=== PATIENT | female | born 1930 | race Caucasian/White ===

== ENCOUNTER 2016-08-29 15:44 | Inpatient (IN) | payer BC, OTHER ==
[~2016-08-29] VITALS: Ht 162.6 cm; Wt 71.4 kg
[~2016-08-29 15:44] MED LIST: CENTRUM SIVER PO; CILO50TA9 PO; CITRACAL PO; CRDCD240 PO; FENO200C6 PO
[2016-08-29] MEDS ORDERED: SODIUM CHLORIDE 0.9% 1000ML 1,000 ML IV STA ×2 (15:59→17:11)
[2016-08-29] MEDS ORDERED: DILTIAZEM BOLUS / DRIP IV STA (15:59)
--- NOTE | 2016-08-29 16:12 | EMERGENCY ROOM VISIT NOTE ---
History Report prepared by Nadira: Mario Alcantar Under the Supervision of: Dr. Santino Lara D.O. First contact with patient: 15:51 Chief Complaint: CARDIAC ASSESSMENT Stated Complaint: CHEST DISCOMFORT Nursing Triage Summary: triage note:pt reports "we finished eating and i started to have tightness in my chest." History of Present Illness The patient is an 86 year old female who presents to the Emergency Room with persistent palpitations that started prior to arrival. The patient stood up from the dinner table earlier today prior to walking to her car when she felt discomfort with palpitations in her chest. She notes that she can feel her heart racing. The patient was feeling fine when she went to bed last night. Today she was feeling tired and weak while doing work around the house but has otherwise felt fine. The patient denies any recent shortness of breath, leg pain or swelling. Per , she has been complaining of chest discomfort. The patient is s/p angioplasty in 2009. She has a history of thyroid disease. She follows up with Dr. Balderas (Family Medicine). She is allergic to Amlodipine and states that her caused her to have a skin breakout. The patient lives with her . Source of History: patient, spouse/significant other Onset: prior to arrival Position: chest Quality: other (palpitations) Timing: other (persistent) Associated Symptoms: No SOB Review of Systems See HPI for pertinent positives & negatives. A total of 10 systems reviewed and were otherwise negative. Past Medical & Surgical Medical Problems: (1) New onset a-fib (2) Thyroid disease Surgical Problems: (1) S/P angioplasty Family History No pertinent family history Social History Smoking Status: Never Smoker Marital Status: Housing Status: lives with family Occupation Status: retired Current/Historical Medications Scheduled Aspirin (Aspirin Ec), 81 MG PO QAM Atorvastatin (Lipitor), 40 MG PO HS Clopidogrel (Plavix), 75 MG PO QAM Famotidine (Pepcid), 20 MG PO QAM Isosorbide Mononitrate Ext Rel (Imdur Ext Rel), 120 MG PO BID Methimazole (Tapazole), 2.5 MG PO QAM Metoprolol Tartrate (Lopressor) (Lopressor), 100 MG PO BID Multiple Minerals W/ Vitamins (Citracal Plus), 1 TAB PO QAM Multiple Vitamins W/ Minerals (Centrum), 1 TAB PO QAM Scheduled PRN Oxycodone/Acetaminophen 5MG/325MG (Percocet 5MG/325MG), 1-2 TABLETS PO Q4H PRN for Pain Allergies Coded Allergies: Amlodipine (Unverified Allergy, Unknown, UNKNOWN, 08/29/16) Morphine (Verified Allergy, Unknown, 04/18/09) Moxifloxacin (Unverified Allergy, Unknown, UNKNOWN, 08/29/16) Quinolones (Verified Allergy, Unknown, 04/18/09) Physical Exam Vital Signs Date Time Temp Pulse Resp B/P (MAP) Pulse Ox O2 Delivery O2 Flow Rate FiO2 08/29/16 17:48 96 Room Air 08/29/16 17:42 140 08/29/16 17:16 116/69 08/29/16 17:14 137 20 96 08/29/16 17:11 105/69 08/29/16 17:06 104/85 08/29/16 17:02 136 26 126/63 08/29/16 17:01 126/63 08/29/16 16:59 128 20 126/75 95 08/29/16 16:56 96/83 08/29/16 16:51 114/88 08/29/16 16:47 149 114/88 08/29/16 16:47 139 122/66 08/29/16 16:46 122/66 08/29/16 16:44 139 18 96 08/29/16 16:42 132 22 118/92 96 Room Air 08/29/16 16:42 118/92 08/29/16 16:37 151 22 127/101 95 08/29/16 16:31 127/101 08/29/16 16:29 146 24 97 08/29/16 16:14 139 17 97 08/29/16 16:04 163 08/29/16 15:59 192 24 94 08/29/16 15:48 36.7 154 20 175/95 96 Room Air Physical Exam GENERAL: Patient is awake, alert, very anxious appearing. EYES: The conjunctivae are clear. The pupils are round and reactive. EARS, NOSE, MOUTH AND THROAT: The nose is without any evidence of any deformity. Mucous membranes are moist tongue is midline NECK: The neck is nontender and supple. RESPIRATORY: Normal respiratory effort is noted there is no evidence of wheezing rhonchi or rales CARDIOVASCULAR: Heart sound irregular and tachycardic, no definite murmurs noted to auscultation. GASTROINTESTINAL: The abdomen is soft. Bowel sounds are present in all quadrants. Abdomen is nontender MUSCULOSKELETAL/EXTREMITIES: There is no evidence of gross deformity full range of motion is noted in the hips and shoulders SKIN: There is no obvious evidence of any rash. There are no petechiae, pallor or cyanosis noted. NEUROLOGIC: Patient is awake alert and oriented x3. Medical Decision & Procedures ER Provider Diagnostic Interpretation: X-ray results as stated below per interpretation by me and the radiologist. CHEST ONE VIEW PORTABLE HISTORY: Chest discomfort. COMPARISON: Chest 11/13/2014. FINDINGS: The lungs are clear. Cardiac silhouette is normal in size. No pleural effusions. No pneumothorax. IMPRESSION: No acute process. Electronically signed by: Ranjit George M.D. 08/29/2016 4:31 PM Dictated Date/Time: 08/29/2016 4:29 PM Laboratory Results 08/29/16 16:02 Red Blood Count 4.72, Mean Corpuscular Volume 94.3, Mean Corpuscular Hemoglobin 31.6, Mean Corpuscular Hemoglobin Concent 33.5, Mean Platelet Volume 10.5, Neutrophils (%) (Auto) 68.4, Lymphocytes (%) (Auto) 21.3, Monocytes (%) (Auto) 8.5, Eosinophils (%) (Auto) 1.3, Basophils (%) (Auto) 0.3, Neutrophils # (Auto) 5.93, Lymphocytes # (Auto) 1.85, Monocytes # (Auto) 0.74, Eosinophils # (Auto) 0.11, Basophils # (Auto) 0.03 08/29/16 16:02 Test 08/29/16 16:02 White Blood Count 8.68 K/uL (4.8-10.8) Red Blood Count 4.72 M/uL (4.2-5.4) Hemoglobin 14.9 g/dL (12.0-16.0) Hematocrit 44.5 % (37-47) Mean Corpuscular Volume 94.3 fL (80-100) Mean Corpuscular Hemoglobin 31.6 pg (25-34) Mean Corpuscular Hemoglobin Concent 33.5 g/dl (32-36) Platelet Count 193 K/uL (130-400) Mean Platelet Volume 10.5 fL (7.4-10.4) Neutrophils (%) (Auto) 68.4 % Lymphocytes (%) (Auto) 21.3 % Monocytes (%) (Auto) 8.5 % Eosinophils (%) (Auto) 1.3 % Basophils (%) (Auto) 0.3 % Neutrophils # (Auto) 5.93 K/uL (1.4-6.5) Lymphocytes # (Auto) 1.85 K/uL (1.2-3.4) Monocytes # (Auto) 0.74 K/uL (0.11-0.59) Eosinophils # (Auto) 0.11 K/uL (0-0.5) Basophils # (Auto) 0.03 K/uL (0-0.2) RDW Standard Deviation 43.7 fL (36.4-46.3) RDW Coefficient of Variation 12.7 % (11.5-14.5) Immature Granulocyte % (Auto) 0.2 % Immature Granulocyte # (Auto) 0.02 K/uL (0.00-0.02) Prothrombin Time 10.7 SECONDS (9.0-12.0) Prothromb Time International Ratio 1.0 (0.9-1.1) Activated Partial Thromboplast Time 28.6 SECONDS (21.0-31.0) Partial Thromboplastin Ratio 1.1 Anion Gap 8.0 mmol/L (3-11) Est Creatinine Clear Calc Drug Dose 40.4 ml/min Estimated GFR () 59.9 Estimated GFR (Non- 51.7 BUN/Creatinine Ratio 22.4 (10-20) Calcium Level 8.8 mg/dl (8.5-10.1) Magnesium Level 2.2 mg/dl (1.8-2.4) Total Bilirubin 0.4 mg/dl (0.2-1) Direct Bilirubin 0.1 mg/dl (0-0.2) Aspartate Amino Transf (AST/SGOT) 24 U/L (15-37) Alanine Aminotransferase (ALT/SGPT) 23 U/L (12-78) Alkaline Phosphatase 98 U/L (45-117) Total Creatine Kinase 135 U/L (26-192) Creatine Kinase MB 2.7 ng/ml (0.5-3.6) Creatine Kinase MB Ratio 2.0 (0-3.0) Troponin I < 0.015 ng/ml (0-0.045) Total Protein 7.3 gm/dl (6.4-8.2) Albumin 3.6 gm/dl (3.4-5.0) Lipase 159 U/L (73-393) Thyroid Stimulating Hormone (TSH) 1.190 uIu/ml (0.300-4.500) Free Thyroxine 1.19 ng/dl (0.80-1.60) Laboratory results per my review. Medications Administered Medications (Trade) Dose Ordered Sig/Mckay Route Start Time Stop Time Status Last Admin Dose Admin Sodium Chloride 1,000 ml @ 999 mls/hr Q1H1M STAT IV 08/29/16 15:59 08/29/16 16:59 DC 08/29/16 15:59 999 MLS/HR Diltiazem HCl (Cardizem Bolus / Drip) 1 ea NOW STAT IV 08/29/16 15:59 08/29/16 16:01 DC 08/29/16 15:59 1 EA Sodium Chloride 1,000 ml @ 250 mls/hr Q4H STAT IV 08/29/16 17:11 08/29/16 21:10 08/29/16 17:11 250 MLS/HR Metoprolol Tartrate (Lopressor Iv) 5 mg STK-MED ONCE .ROUTE 08/29/16 17:42 08/29/16 17:43 DC 08/29/16 17:42 5 MG ECG Indication: palpitations Rate (beats per minute): 156 Rhythm: atrial fibrillation (with RVR) Findings: ST depression (inferior and lateral, likely rate-related ischemia), other (RVR) Comparison ECG Date: no prior available ED Course 1555: The patient was evaluated in room A2. A complete history and physical examination were performed. 1559: Diltiazem 1 ea IV, NSS 1000 ml @ 999 mls/hr. 1615: Diltiazem HCl bolus / drip 125 mg / dextrose 125 ml @ 0 mls/hr. 1710: Discussed the case with Dr. Bell, [facility] Hospitalist. The patient will be evaluated. 1711: NSS 1000 ml @ 250 mls/hr. 1830: Reassessed the patient. She was doing well. Medical Decision Prior records/ancillary studies reviewed. Triage Nursing notes reviewed. Additional history obtained from . The patient's history was concerning for palpitations. Differential diagnosis: Etiologies such as premature contractions, electrolyte abnormality, cardiac dysrhythmia, thyroid dysfunction, pulmonary embolism, infection, gastrointestinal, as well as others were entertained. Blood pressure screening: Patient was found to have normal blood pressure on screening and does not require follow-up. Medication Reconciliation: I attest that I have personally reviewed the patient' s current medications list. The patient is an 86-year-old female who presented to the emergency department for an evaluation of palpitations and weakness. The patient was found to be in rapid atrial fibrillation. She doesn't a history of coronary artery disease but according to her and her family members she has never had a history of atrial fibrillation in the past. I discussed the patient's laboratory and radiographic studies with her. She was treated with IV fluids and IV Cardizem in the emergency department. Her rate was somewhat improved but she continued to have low blood pressure after the initiation of the IV Cardizem. I discussed her case with the on-call [facility] hospitalist group. They've agreed to evaluate the patient in emergency apartment for further management and disposition. The patient was further treated with IV fluids and her blood pressure improved but her heart rate was still elevated. I will defer anticoagulation to the admitting team at this time. Likely the patient will need a formal evaluation to determine if she requires other rate treatment as well as anticoagulation. Consults Time Called: 1700 Consulting Physician: Dr. Bell, [facility]. Returned Call: 1710 The patient will be evaluated. Impression Primary Impression: Atrial fibrillation with rapid ventricular response Additional Impressions: Weakness Palpitations Abnormal EKG Critical Care I have personally spent greater than 60 minutes of critical care time in the direct management of this patient. This includes bedside care, interpretation of diagnostic studies, and testing, discussion with consultants, patient, and family members, and other required patient management activities. This 60 minutes is in excess of all separately billable procedures. Scribe Attestation The scribe's documentation has been prepared under my direction and personally reviewed by me in its entirety. I confirm that the note above accurately reflects all work, treatment, procedures, and medical decision making performed by me. Departure Information Dispostion Being Evaluated By Hospitalist Moses Patricka M., DO (PCP) Patient Instructions My [facility] Problem Qualifiers
[2016-08-29 16:13] LABS: BASO % 0.3 %; BASO ABS # 0.03 K/uL (0-0.2); COMPLETE YES; EOS % 1.3 %; HEMATOCRIT 44.5 % (37-47); IG% 0.2 %; LYMPH % 21.3 %; LYMPH ABS # 1.85 K/uL (1.2-3.4); MEAN CELL VOLUME 94.3 fL (80-100); MEAN CORPUSCULAR HEMOGLOBIN 31.6 pg (25-34); MEAN CORPUSCULAR HGB CONC 33.5 g/dl (32-36); MEAN PLATELET VOLUME 10.5 fL (7.4-10.4); MONO % 8.5 %; NEUT % 68.4 %; PLATELET COUNT 193 K/uL (130-400); RED BLOOD COUNT 4.72 M/uL (4.2-5.4); WHITE BLOOD COUNT 8.68 K/uL (4.8-10.8)
[2016-08-29] MEDS ORDERED: DILTIAZEM HCL INJ 125 MG in DEXTROSE 5% 100ML IV PRN (16:15)
[2016-08-29] MEDS ORDERED: FAMO20TA11 PO (16:22)
[2016-08-29] MEDS ORDERED: MULT-663 PO (16:22)
[2016-08-29] MEDS ORDERED: ASPI81TA28 PO (16:22)
[2016-08-29] MEDS ORDERED: METO100T14 PO (16:22)
[2016-08-29] MEDS ORDERED: METH5TAB5 PO (16:22)
[2016-08-29] MEDS ORDERED: MULTTAB5 PO (16:22)
[2016-08-29] MEDS ORDERED: ISOS120T5 PO (16:22)
[2016-08-29] MEDS ORDERED: ATOR-24 PO (16:22)
[2016-08-29] MEDS ORDERED: OXYC-57 PO (16:22)
[2016-08-29] MEDS ORDERED: CLOP1TAB15 PO (16:22)
[2016-08-29 16:23] LABS: PARTIAL THROMBOPLASTIN RATIO 1.1; PROTHROMBIN TIME (PATIENT) 10.7 SECONDS (9.0-12.0)
[2016-08-29 16:31] LABS: ALT/SGPT 23 U/L (12-78); AST/SGOT 24 U/L (15-37); BLOOD UREA NITROGEN 22 mg/dl (7-18); BUN/CREATININE RATIO 22.4 (10-20); CALCIUM 8.8 mg/dl (8.5-10.1); CARBON DIOXIDE 29 mmol/L (21-32); CHLORIDE 107 mmol/L (98-107); GLUCOSE 150 mg/dl (70-99); MAGNESIUM 2.2 mg/dl (1.8-2.4); SODIUM 144 mmol/L (136-145)
--- NOTE | 2016-08-29 16:33 | DIAGNOSTIC IMAGING REPORT ---
CHEST ONE VIEW PORTABLE HISTORY: Chest discomfort. COMPARISON: Chest 11/13/2014. FINDINGS: The lungs are clear. Cardiac silhouette is normal in size. No pleural effusions. No pneumothorax. IMPRESSION: No acute process. Electronically signed by: Ranjit George M.D. 08/29/2016 4:31 PM Dictated Date/Time: 08/29/2016 4:29 PM
[2016-08-29 16:39] LABS: ALKALINE PHOSPHATASE 98 U/L (45-117)
[2016-08-29] MEDS ORDERED: METOPROLOL TARTRATE 1 MG/ML VIAL ONE (17:42)
[2016-08-29 17:48] VITALS: O2SAT 96; Ht 162.6 cm; Wt 71.4 kg
[2016-08-29] MEDS ORDERED: LORAZEPAM 2 MG/ML 1 ML VIAL IV PRN (18:00)
[2016-08-29] MEDS ORDERED: MAGNESIUM HYDROXIDE SUSP 30 ML UDC PO PRN (18:00)
[2016-08-29] MEDS ORDERED: OXYCODONE/ACETAMINOPHEN 5-325 TAB PO PRN (18:00)
[2016-08-29] MEDS ORDERED: DILTIAZEM BOLUS / DRIP IV SCH (18:00)
[2016-08-29] MEDS ORDERED: ACETAMINOPHEN 325 MG TAB PO PRN (18:00)
[2016-08-29] MEDS ORDERED: NITROGLYCERIN 0.4 MG SL PER TAB CHARGE SL PRN (18:00)
[2016-08-29] MEDS ORDERED: HEPARIN SOD (PORCINE) 1000 UNIT/ML 10 ML VIAL ONE (19:00)
[2016-08-29] MEDS ORDERED: HEPARIN 25000 UNIT/500 ML D5W ONE (19:00)
[2016-08-29 19:47] VITALS: BP 162/79; PULSE 82; TEMP 36.6; O2SAT 95
[2016-08-29 20:13] LABS: URINE APPEARANCE CLEAR (CLEAR); URINE BILIRUBIN NEG (NEG); URINE COLOR YELLOW; URINE NITRITE NEG (NEG); URINE SPECIFIC GRAVITY 1.013 (1.000-1.030); UROBILINOGEN NEG (NEG)
[2016-08-29 20:36] LABS: MANUAL MICROSCOPIC REQUIRED? NO; REVIEW REQ? NO
[2016-08-29] MEDS ORDERED: RANITIDINE HCL 150 MG TAB PO SCH (21:00)
[2016-08-29] MEDS ORDERED: METOPROLOL TARTRATE 100 MG TAB PO SCH (21:00)
[2016-08-29 21:35] VITALS: BP 145/82; PULSE 69
[2016-08-29] MEDS: SODIUM CHLORIDE 0.9% 1000ML 1,000 ML IV SCH (21:36)
[2016-08-29] MEDS: ATORVASTATIN 40 MG TAB PO SCH (21:36)
[2016-08-29] MEDS: METOPROLOL TARTRATE 50 MG TAB PO SCH (21:36)
[2016-08-29] MEDS: ISOSORBIDE MONONITRATE 60 MG TABCR PO SCH (22:06)
--- NOTE | 2016-08-29 22:07 | HISTORY & PHYSICAL EXAMINATION ---
DATE OF ADMISSION: 08/29/2016 CHIEF COMPLAINT: Chest tightness. HISTORY OF PRESENT ILLNESS: The patient is an 86-year-old female with past medical history of hyperthyroidism, currently on oral medications, and also has high blood pressure and dyslipidemia. The patient was having a family gathering for Father's Day and they were eating out Together, when she started feeling some chest tightness and discomfort. Family insisted to bring her to the hospital. She denied any chest pain or palpitation, but when she came to the hospital, she was found to have a heart rate of 150. EKG in the ED showed significant ST depression in multiple leads. The patient was started on a Cardizem drip and received IV fluid hydration, with no improvement. The patient reported that she did miss her beta-todd this morning. She was supposed to be on 100 mg metoprolol twice a day, because she ran out. After hearing that, she was given 5 mg of Lopressor IV and she converted to sinus rhythm. The patient will be admitted for further evaluation and management. REVIEW OF SYSTEMS: Denies any headache, double vision, blurry vision. Denies any fevers, chills or weight loss. Denies any chest pain or palpitation. Admits only to chest tightness. Denied any neck stiffness. Denies any nasal stuffiness or runny nose or sore throat. Denies any cough or wheezing, shortness of breath. Denies any abdominal pain, nausea, vomiting. Denies any rash or ulcers. Denies any joint pain or swelling. Denies any focal weakness, tingling, numbness. Denies any dysuria or blood in the urine. Denies any depression. Denies any bruises or lymph node swelling. PAST MEDICAL HISTORY: Thyroid disease, hypertension, dyslipidemia, history of CAD, status post an angioplasty in 2009. She is unsure if she had any stent placed. FAMILY HISTORY: No pertinent family history. SOCIAL HISTORY: Never a smoker, and lives with family. Does not drink alcohol. CURRENT HOME MEDICATIONS: 1. Aspirin. 2. Lipitor 40 mg p.o. daily. 3. Plavix 75 mg p.o. daily. 4. Pepcid 20 mg q.a.m. 5. Imdur 120 mg p.o. b.i.d. 6. Methimazole 2.5 mg p.o. q.a.m. 7. Lopressor 100 mg p.o. b.i.d. 8. Multiple minerals and vitamin. 9. Percocet p.r.n. pain. ALLERGIES: 1. AMLODIPINE, 2. MORPHINE. 3. MOXIFLOXACIN. 4. QUINOLONES. VITAL SIGNS: Temperature 36.7, heart rate ranging from 120 to 190 on admission, currently is down to 85, respiration is 20, blood pressure is 116/69, pulse ox is 96% on room air. PHYSICAL EXAMINATION: GENERAL: Awake, alert, oriented, not in acute distress. HEENT: No jaundice. No pallor. Moist mucous membranes. NECK: Supple. HEART: S1, S2. Severe tachycardia with irregular irregularity, unable to appreciate any murmur. LUNGS: Clear to auscultation bilaterally. Normal chest wall expansion, not using accessory muscles of respiration. ABDOMEN: Soft, nontender, nondistended. NEUROLOGIC: Awake, alert, oriented to time, place, and person. Moves all extremities. Sensation intact. Cranial nerves II-XII appear to be intact. SKIN: No rash or pruritus. MUSCULOSKELETAL: No edema or swelling or cyanosis in lower extremity. A chest x-ray showed no acute process. LABORATORY DATA: White blood cell count 8.6, hemoglobin 14.9, platelets 193, BUN is 22, creatinine is 1. Sodium 144, potassium is 4. ASSESSMENT AND PLAN: 1. Atrial fibrillation with rapid ventricular response with concomitant demand ischemia, most likely secondary to hyperthyroidism and beta-todd withdrawal. Currently, reverted to sinus rhythm after introducing IV Lopressor. We will restart oral beta-blockers stat, but will have her on a lower dose, only 50 mg since her blood pressure is low. Discussed with family and patient, will initiate heparin drip until seen by life skills coordinator volunteer. With that said, she will be on aspirin, Plavix and heparin drip, which has high tendency for bleeding. I will leave it up to life skills coordinator volunteer to decide whether to continue heparin or to discontinue aspirin or Plavix, especially after retrieving her records from her life skills coordinator volunteer in [place], in a.m. to see if she ever had a stent or not. 2. Hypertension. Continue blood pressure medications, including the beta-todd. Hold blood pressure medication, if her blood pressure remains low. 3. Dyslipidemia. Continue Lipitor. 4. Hyperthyroidism. Continue methimazole, check thyroid panel. 5. Continue Pepcid for gastrointestinal prophylaxis and heparin drip will be for deep venous thrombosis prophylaxis.
[2016-08-29 23:05] VITALS: BP 150/67; PULSE 66; TEMP 36.7; O2SAT 95
[2016-08-30] VITALS (12 sets, daily range): BP systolic 111–198; BP diastolic 61–96; PULSE 55–98; TEMP 36.7–37; O2SAT 92–98
[2016-08-30] MEDS: HEPARIN 25,000 UNIT/500ML D5W 500 ML IV PRN (03:13)
[2016-08-30 06:04] LABS: MEAN CELL VOLUME 95.5 fL (80-100); MEAN CORPUSCULAR HEMOGLOBIN 30.4 pg (25-34); MEAN CORPUSCULAR HGB CONC 31.8 g/dl (32-36); MEAN PLATELET VOLUME 10.5 fL (7.4-10.4); PLATELET COUNT 156 K/uL (130-400); RED BLOOD COUNT 3.98 M/uL (4.2-5.4); WHITE BLOOD COUNT 7.65 K/uL (4.8-10.8)
[2016-08-30 06:23] LABS: PARTIAL THROMBOPLASTIN RATIO 2.7
[2016-08-30] MEDS: SODIUM CHLORIDE 0.9% 1000ML 1,000 ML IV SCH (07:44)
[2016-08-30] MEDS: ASPIRIN 81 MG ECTAB PO SCH (07:44)
[2016-08-30] MEDS: METOPROLOL TARTRATE 50 MG TAB PO SCH ×2 (07:45→21:33)
[2016-08-30] MEDS: ISOSORBIDE MONONITRATE 60 MG TABCR PO SCH ×2 (07:45→20:36)
[2016-08-30] MEDS: CEROVITE ADV FORMULA TAB PO SCH (07:46)
[2016-08-30] MEDS: CLOPIDOGREL BISULFATE 75 MG TAB PO SCH (07:46)
[2016-08-30] MEDS: METHIMAZOLE 5 MG TAB PO SCH (07:46)
[2016-08-30] MEDS: FAMOTIDINE 20 MG TAB PO SCH (07:46)
[2016-08-30 10:17] LABS: PARTIAL THROMBOPLASTIN RATIO 2.3
--- NOTE | 2016-08-30 10:50 | CARDIOLOGY CONSULTATION ---
DATE OF CONSULTATION: 08/30/2016 REQUESTING: Nicky Mac MD CIGAR ROLLER: Moo Bonilla D.O, [facility]. REASON FOR CONSULTATION: Atrial fibrillation with a rapid ventricular response. Dear Dr. Aguilar: Thank you for requesting cardiology consultation on Romelia with regards to her episode of atrial fibrillation with a rapid ventricular response at a rate of 156 beats per minute. HISTORY OF PRESENT ILLNESS: As you know, she is a very pleasant 86-year-old female and they live about 2/3 of the year in [place] and a third of the year here in [place] and they just recently returned from [place]. They were out to dinner yesterday afternoon with their children and she describes a fluttering sensation, almost feeling like there was a Adarsh worms fluttering in her chest. She notes that she is never felt anything like that before. She notes occasionally in the past she will have palpitations which are brief and rapidly resolved. She has never had anything like this. She notes she just did not quite feel well and they were passing the hospital and at the request of her children, she came to the Emergency Room where she was found to have an EKG that was consistent with atrial fibrillation with a rapid ventricular response. She had diffuse ST depression consistent with anterior lateral and possible inferior ischemia as well. Of note, she ran out of her beta blockers. She thinks she missed at least a day if not 2 days of metoprolol which she normally takes 100 mg twice a day. She also has a history of hyperthyroidism and likely this combination contributed to her atrial arrhythmias. She does note that they have been moving and she does get short of breath if she walks for long distance or carries something, but she can walk in a grocery store without significant shortness of breath. She notes where they live. There is an elevator and therefore she does not have to climb stairs and she notes she has been more sedentary of late. She denies any chest pain, chest pressure, chest heaviness either yesterday or with activity. She denies any shortness of breath yesterday, PND, orthopnea. She denies any lightheadedness, dizziness, presyncope, syncope, lower extremity edema. She does have easy bruising on aspirin and Plavix. She denies any dark black tarry stools, blood in her stools, fevers, chills, sweats. Her appetite is stable. Her weight is stable. The rest of review of systems is otherwise negative. PAST MEDICAL HISTORY: 1. Coronary artery disease, status post angioplasty and stenting to an unknown vessel in 2009. 2. Echocardiogram in fall of 2015. 3. Hyperthyroidism. 4. Hypertension. 5. Hyperlipidemia. SOCIAL HISTORY: She is . She lives with her . They live between [place] and [place]. She is a lifetime nonsmoker, denies any alcohol. OUTPATIENT MEDICATIONS: Include aspirin, Lipitor 40 mg daily, Plavix 75 mg daily, Pepcid, Imdur 120 mg b.i.d., methimazole, Lopressor 100 mg b.i.d., Percocet, multivitamin. ALLERGIES: AMLODIPINE, MORPHINE, MOXIFLOXACIN, AND QUINOLONES. FAMILY HISTORY: Noncontributory. PHYSICAL EXAMINATION: GENERAL: She is awake, alert, oriented x3. She is no acute distress. She is a well-appearing female who looks her stated age. VITAL SIGNS: Her heart rate is 98; her respirations are 18; blood pressure 195/96, although earlier at 4:00 a.m., her heart rate was 62 and her blood pressure was 165/91. HEENT: 2+ carotid upstrokes. No evidence of carotid bruits. Jugular venous pressure appeared normal. Sclerae is anicteric. Hearing is normal. LUNGS: Clear to auscultation bilaterally. No rales, rhonchi or wheezing. HEART: Regular rate and rhythm. No appreciable murmurs, rubs or gallops. ABDOMEN: Soft, nontender, nondistended, positive bowel sounds. EXTREMITIES: No clubbing, cyanosis or edema. SKIN: She has ecchymosis or bruising on both upper arms. PSYCHIATRIC: Affect appeared appropriate. NEUROLOGIC: She is awake, alert and oriented x3. DIAGNOSTIC STUDIES: Chest x-ray, no active disease. LABORATORY STUDIES: Her PTT is 69.5 today. Her troponin at 1:38 was 1.2200, her first troponin was negative. Sodium 144, potassium 4.0, BUN 22, creatinine 1. Her TSH was 1.19 with a free T4 of 1.19. Her hemoglobin was 12.1 and her platelet count is 156. EKG in normal sinus rhythm, very subtle mild ST changes. IMPRESSION AND PLAN: 1. Atrial fibrillation with rapid ventricular response, likely related to missing at least 2 potentially 4 doses of metoprolol. 2. Coronary artery disease, status post angioplasty and stenting to an unknown vessel in 2009. 3. Hypertension. 4. Hyperlipidemia. 5. Small troponin elevation, potentially demand ischemia. With IV metoprolol, she converted back to sinus rhythm. She denies ever having an episode where she felt like this in the past as if we think she is having recurrent atrial fibrillation with her hyperthyroidism that would put her at high risk for having cardioembolic events. At this point, I would trend her troponin. I would aggressively treat her blood pressure. She is to remain on beta blockers. If her troponin is trending down, I would just continue her current medical regimen and not entertain additional stress testing or cardiac catheterization. If her troponin trends significantly higher, we will need to reevaluate that. In addition, we need to obtain her outside records including her last echocardiogram, stress testing, and cath report from her physician in [place]. I would stop her IV fluids. I would allow her to ambulate. All this was discussed with the patient in detail.
--- NOTE | 2016-08-30 11:15 | Progress Note ---
Subjective Date of Service: Aug 30, 2016. Subjective Pt evaluation today including: conversation w/ patient, conversation w/ family , physical exam, chart review, lab review, review of studies, conversation w/ strategic solutions consultant, review of inpatient medication list Voiding: no voiding problems Sitting up in chair, has no complaint, denied chest pain Nurse reported blood pressure was high and this morning, however heart rate is good and currently is converted in normal sinus Problem List Medical Problems: (1) Abnormal EKG Status: Acute (2) Atrial fibrillation with rapid ventricular response Status: Acute (3) Palpitations Status: Acute (4) Weakness Status: Acute Review of Systems Constitutional: No fever, No chills, No sweats, No weight loss, No weakness, No fatigue, No problem reported Eyes: No worsening of vision, No eye pain, No redness, No discharge, No diplopia ENT: No hearing loss, No unusual epistaxis, No nasal symptoms, No sore throat, No tinnitus, No dental problems, No trouble swallowing Respiratory: No cough, No sputum, No wheezing, No shortness of breath, No dyspnea on exertion, No dyspnea at rest, No hemoptysis Cardiac: No chest pain, No orthopnea, No PND, No edema, No claudication, No palpitations Abdomen: No pain, No nausea, No vomiting, No diarrhea, No constipation Musculoskeletal: No joint pain, No muscle pain, No swelling, No calf pain Female : No dysuria, No urinary frequency, No hematuria, No incontinence, No abnormal vaginal bleeding, No vaginal discharge Neurologic: No memory loss, No paralysis, No weakness, No numbness/tingling, No vertigo, No balance problems Psychiatric: No depression symptoms, No anhedonism, No anxiety, No insomnia, No substance abuse Heme: No abnormal bleeding/bruising, No clotting problems, No swollen lymph nodes, No night sweats Endo: No fatigue, No excessive thirst, No excessive urination Skin: No rash, No itch, No new/changing skin lesions, No color change, No bleeding Objective Vital Signs Date Time Temp Pulse Resp B/P (MAP) Pulse Ox O2 Delivery O2 Flow Rate FiO2 08/30/16 08:30 64 167/77 (107) 08/30/16 07:43 37.0 98 18 195/96 (129) 96 198/94 (128) 08/30/16 04:02 Room Air 6/19/17 03:39 36.7 62 20 165/91 (115) 94 Room Air 19/17 00:00 Room Air 618/17 23:05 36.7 66 20 150/67 (94) 95 Room Air 618/17 21:35 69 145/82 (103) 618/17 20:00 Room Air 618/17 19:47 36.6 82 20 162/79 (106) 95 Room Air 18/17 19:21 71 19 95 618/17 19:19 36.7 81 20 108/66 94 618/17 19:16 72 23 96 618/17 19:11 74 21 96 618/17 19:06 72 23 95 618/17 19:02 113/55 618/17 19:01 73 21 95 618/17 18:56 76 21 96 618/17 18:51 74 22 96 618/17 18:46 85 17 94 618/17 18:41 79 22 96 618/17 18:36 81 20 94 618/17 18:31 83 28 108/66 618/17 18:27 119/62 6/18/17 18:26 80 18 113/79 95 618/17 18:23 113/61 618/17 18:21 82 20 110/62 618/17 18:19 127/63 618/17 18:17 110/56 618/17 18:16 84 22 95 618/17 18:15 112/59 618/17 18:13 114/74 618/17 18:11 88 23 118/68 94 6/18/17 18:09 117/66 618/17 18:08 118/70 6/18/17 18:06 114 28 126/68 94 618/17 18:03 99/87 618/17 18:01 126 27 91 6/18/17 17:59 107/72 6/18/17 17:57 107/86 6/18/17 17:56 132 25 93 6/18/17 17:55 114/72 618/17 17:53 89/74 618/17 17:51 152 24 106/76 94 6/18/17 17:48 96 Room Air 6/18/17 17:46 142 22 95 17 17:42 140 08/29/16 17:41 136 13 118/79 94 08/29/16 17:36 146 22 95 1817 17:33 113/89 1817 17:31 154 34 80 1817 17:29 107/69 1817 17:27 94/62 17 17:26 127 18 96 08/29/16 17:21 143 24 115/71 1817 17:16 116/69 17 17:14 137 20 96 08/29/16 17:11 105/69 08/29/16 17:06 104/85 08/29/16 17:02 136 26 126/63 08/29/16 17:01 126/63 08/29/16 16:59 128 20 126/75 95 08/29/16 16:56 96/83 08/29/16 16:51 114/88 08/29/16 16:47 149 114/88 08/29/16 16:47 139 122/66 17 16:46 122/66 17 16:44 139 18 96 08/29/16 16:42 132 22 118/92 96 Room Air 08/29/16 16:42 118/92 08/29/16 16:37 151 22 127/101 95 17 16:31 127/101 17 16:29 146 24 97 08/29/16 16:14 139 17 97 08/29/16 16:04 163 08/29/16 15:59 192 24 94 08/29/16 15:48 36.7 154 20 175/95 96 Room Air Physical Exam General Appearance: WD/WN, no apparent distress, + pertinent finding Eyes: normal inspection, PERRL, EOMI, sclerae normal ENT: normal ENT inspection, hearing grossly normal, pharynx normal Neck: supple, no adenopathy, thyroid normal, no JVD, no carotid bruits, trachea midline Respiratory/Chest: chest non-tender, normal breath sounds, no respiratory distress, no accessory muscle use, + decreased breath sounds (pleasant) Cardiovascular: regular rate, rhythm, no edema, no gallop, no JVD, no murmur Abdomen: normal bowel sounds, non tender, soft, no organomegaly, no pulsatile mass Extremities: normal range of motion, non-tender, normal inspection, no pedal edema, no calf tenderness, normal capillary refill, pelvis stable Neurologic/Psychiatric: net lead architect II-XII nml as tested, no motor/sensory deficits, alert, normal mood/affect, oriented x 3 Skin: normal color, warm/dry, no rash Lymphatic: no adenopathy Laboratory Results Last 24 Hours Test 08/29/16 16:02 08/29/16 19:40 08/29/16 22:46 08/30/16 01:38 White Blood Count 8.68 K/uL Red Blood Count 4.72 M/uL Hemoglobin 14.9 g/dL Hematocrit 44.5 % Mean Corpuscular Volume 94.3 fL Mean Corpuscular Hemoglobin 31.6 pg Mean Corpuscular Hemoglobin Concent 33.5 g/dl Platelet Count 193 K/uL Mean Platelet Volume 10.5 fL Neutrophils (%) (Auto) 68.4 % Lymphocytes (%) (Auto) 21.3 % Monocytes (%) (Auto) 8.5 % Eosinophils (%) (Auto) 1.3 % Basophils (%) (Auto) 0.3 % Neutrophils # (Auto) 5.93 K/uL Lymphocytes # (Auto) 1.85 K/uL Monocytes # (Auto) 0.74 K/uL Eosinophils # (Auto) 0.11 K/uL Basophils # (Auto) 0.03 K/uL RDW Standard Deviation 43.7 fL RDW Coefficient of Variation 12.7 % Immature Granulocyte % (Auto) 0.2 % Immature Granulocyte # (Auto) 0.02 K/uL Prothrombin Time 10.7 SECONDS Prothromb Time International Ratio 1.0 Activated Partial Thromboplast Time 28.6 SECONDS 78.3 SECONDS Partial Thromboplastin Ratio 1.1 3.0 Sodium Level 144 mmol/L Potassium Level 4.0 mmol/L Chloride Level 107 mmol/L Carbon Dioxide Level 29 mmol/L Anion Gap 8.0 mmol/L Blood Urea Nitrogen 22 mg/dl Creatinine 1.00 mg/dl Est Creatinine Clear Calc Drug Dose 40.4 ml/min Estimated GFR () 59.9 Estimated GFR (Non- 51.7 BUN/Creatinine Ratio 22.4 Random Glucose 150 mg/dl Calcium Level 8.8 mg/dl Phosphorus Level 3.5 mg/dl Magnesium Level 2.2 mg/dl Total Bilirubin 0.4 mg/dl Direct Bilirubin 0.1 mg/dl Aspartate Amino Transf (AST/SGOT) 24 U/L Alanine Aminotransferase (ALT/SGPT) 23 U/L Alkaline Phosphatase 98 U/L Total Creatine Kinase 135 U/L 127 U/L Creatine Kinase MB 2.7 ng/ml Creatine Kinase MB Ratio 2.0 Troponin I < 0.015 ng/ml 1.220 ng/ml Total Protein 7.3 gm/dl Albumin 3.6 gm/dl Lipase 159 U/L Thyroid Stimulating Hormone (TSH) 1.190 uIu/ml Free Thyroxine 1.19 ng/dl Thyroxine (T4) 7.9 mcg/dl Urine Color YELLOW Urine Appearance CLEAR Urine pH 5.0 Urine Specific [place] 1.013 Urine Protein NEG Urine Glucose (UA) NEG Urine Ketones NEG Urine Occult Blood TRACE Urine Nitrite NEG Urine Bilirubin NEG Urine Urobilinogen NEG Urine Leukocyte Esterase NEG Urine WBC (Auto) 0 /hpf Urine RBC (Auto) 0-4 /hpf Urine Hyaline Casts (Auto) 0 /lpf Urine Epithelial Cells (Auto) 10-20 /lpf Urine Bacteria (Auto) NEG Bedside Glucose 120 mg/dl Test 08/30/16 05:20 08/30/16 06:48 08/30/16 09:29 White Blood Count 7.65 K/uL Red Blood Count 3.98 M/uL Hemoglobin 12.1 g/dL Hematocrit 38.0 % Mean Corpuscular Volume 95.5 fL Mean Corpuscular Hemoglobin 30.4 pg Mean Corpuscular Hemoglobin Concent 31.8 g/dl RDW Standard Deviation 44.3 fL RDW Coefficient of Variation 12.8 % Platelet Count 156 K/uL Mean Platelet Volume 10.5 fL Activated Partial Thromboplast Time 69.5 SECONDS 60.9 SECONDS Partial Thromboplastin Ratio 2.7 2.3 Bedside Glucose 99 mg/dl Total Creatine Kinase 128 U/L Troponin I 0.655 ng/ml Assessment and Plan 86-year-old white female admitted on 08/29/2016 because of A. fib with rapid glandular response Atrial fibrillation with rapid ventricular response, likely related to missing at least 2 potentially 4 doses of metoprolol, stable, currently converted normal sinus Minimal troponin elevation, possible from demand ischemia; traveling has trends down, hx of Coronary artery disease, status post angioplasty and stenting to an unknown vessel in 2010. Will order another set of troponin , reactive stable, continue heparin until cardiology clarified Accelerated Hypertension. Hyperlipidemia. Fasting lipid panel ordered Plan; Ana Cristina nuñez was converted by [facility] IV metoprolol, denies ever having an episode where she felt like this in the past as if we think she is having recurrent atrial fibrillation with her hyperthyroidism that would put her at high risk for having cardioembolic events. Continue trend troponin. Banquet Stewardess saw the patient , continue current medication , aggressively treat hypertension , no planning to stress testing or cardiac catheterization. Planning to obtain her outside records including her last echocardiogram, stress testing, and cath report from her physician in [place]. We'll discontinue IV fluid, GI and DVT prophylaxis is covered Continued [facility] stay due to: multiple IV medications needed Discharge planning: home
[2016-08-30] MEDS ORDERED: NURSING VERBAL MED ORDER ONE (16:15)
[2016-08-30] MEDS ORDERED: ENALAPRIL MALEATE 5 MG TAB PO ONE (16:30)
[2016-08-30] MEDS: ATORVASTATIN 40 MG TAB PO SCH (20:36)
[2016-08-31 04:19] VITALS: BP 173/91; PULSE 64; TEMP 36.6; O2SAT 96
[2016-08-31] MEDS ORDERED: NURSING VERBAL MED ORDER ONE (04:30)
[2016-08-31] MEDS ORDERED: HydrALAZINE HCL 20 MG/ML VIAL IV. PRN (04:45)
[2016-08-31 05:20] VITALS: BP 139/83; PULSE 80
[2016-08-31] MEDS: HEPARIN 25,000 UNIT/500ML D5W 500 ML IV PRN (06:06)
[2016-08-31 06:53] LABS: PARTIAL THROMBOPLASTIN RATIO 2.2
[2016-08-31 07:27] LABS: BUN/CREATININE RATIO 16.8 (10-20); CALCIUM 8.8 mg/dl (8.5-10.1); CREATININE 0.77 mg/dl (0.60-1.20); MAGNESIUM 2.1 mg/dl (1.8-2.4); PHOSPHORUS 2.6 mg/dl (2.5-4.9); POTASSIUM 3.9 mmol/L (3.5-5.1)
[2016-08-31 08:13] VITALS: BP 124/56; PULSE 73; TEMP 36.6; O2SAT 96
[2016-08-31] MEDS: ASPIRIN 81 MG ECTAB PO SCH (08:41)
[2016-08-31] MEDS: CEROVITE ADV FORMULA TAB PO SCH (08:42)
[2016-08-31] MEDS: CLOPIDOGREL BISULFATE 75 MG TAB PO SCH (08:42)
[2016-08-31] MEDS: METHIMAZOLE 5 MG TAB PO SCH (08:42)
[2016-08-31] MEDS: ISOSORBIDE MONONITRATE 60 MG TABCR PO SCH (08:42)
[2016-08-31] MEDS: METOPROLOL TARTRATE 50 MG TAB PO SCH (08:42)
[2016-08-31] MEDS: FAMOTIDINE 20 MG TAB PO SCH (08:43)
[2016-08-31] MEDS ORDERED: ENALAPRIL MALEATE 5 MG TAB PO SCH (09:00)
--- NOTE | 2016-08-31 09:27 | Cardiology Follow-Up ---
Subjective General Date of Service: Aug 31, 2016. Pt evaluation today including: conversation w/ patient, chart review, lab review, review of studies History of Present Illness The patient is a 86 year old female Allergies Coded Allergies: Amlodipine (Unverified Allergy, Unknown, UNKNOWN, 08/29/16) Morphine (Verified Allergy, Unknown, 04/18/09) Moxifloxacin (Unverified Allergy, Unknown, UNKNOWN, 08/29/16) Quinolones (Verified Allergy, Unknown, 04/18/09) Social History Smoking Status: Never Smoker Hx Alcohol Use - Type And Amou: No Hx Substance Use - Type And Am: No Problem List Medical Problems: (1) Abnormal EKG Status: Acute (2) Atrial fibrillation with rapid ventricular response Status: Acute (3) Palpitations Status: Acute (4) Weakness Status: Acute Review of Systems Respiratory: No cough, No shortness of breath, No dyspnea at rest Cardiac: No chest pain, No edema, No palpitations Additional ROS Details: very anxious and concerned about BP Physical Exam Vital Signs Last Vital Signs Documentation Date Time Temp Pulse Resp B/P (MAP) Pulse Ox O2 Delivery O2 Flow Rate FiO2 08/31/16 08:13 36.6 73 20 124/56 (78) 96 Room Air Physical Exam Constitutional: General Apperance: heathly-appearing Level of Distress: NAD Lungs: Respiratory effort: no dyspnea Auscultation: breath sounds normal, no wheezing, no rales/crackles, no rhonchi Cardiovascular: Heart Auscultation: RRR, no murmurs, no rubs, no gallops Peripheral Pulses: Carotid Pulse: normal on the left, normal on the right Extremities: no edema Assessment and Plan Assessment and Plan IMPRESSION AND PLAN: 1. Atrial fibrillation with rapid ventricular response, likely related to missing at least 2 potentially 4 doses of metoprolol. 2. Coronary artery disease, status post angioplasty and stenting to an unknown vessel in 2009. 3. Hypertension. 4. Hyperlipidemia. 5. Small troponin elevation, potentially demand ischemia. Her troponin trended down and was likely from demand ischemia. No recurrence of her AFib. She has had no assessment of her blood pressure since last February in [place]. It has been high here (NSS and anxiety may be contributing). Agree with enalapril but it's really a BID drug and I would increase it to 5mg BID The question is wether her mild SOB is related to an anginal equivalent or related to her BP. Ok with going home. She is very anxious here and cares for her which is making her more anxious. BMP in 10 days with addition of KIZZY. Will arrange follow up with me. No records from [place] available still at this time. Laboratory Results Last 24 Hours Test 08/30/16 09:29 08/30/16 15:53 08/31/16 06:20 Activated Partial Thromboplast Time 60.9 SECONDS 56.6 SECONDS Partial Thromboplastin Ratio 2.3 2.2 Total Creatine Kinase 128 U/L Troponin I 0.655 ng/ml 0.481 ng/ml Sodium Level 145 mmol/L Potassium Level 3.9 mmol/L Chloride Level 112 mmol/L Carbon Dioxide Level 23 mmol/L Anion Gap 10.0 mmol/L Blood Urea Nitrogen 13 mg/dl Creatinine 0.77 mg/dl Est Creatinine Clear Calc Drug Dose 52.7 ml/min Estimated GFR () 82.2 Estimated GFR (Non- 70.9 BUN/Creatinine Ratio 16.8 Random Glucose 101 mg/dl Calcium Level 8.8 mg/dl Phosphorus Level 2.6 mg/dl Magnesium Level 2.1 mg/dl
[2016-08-31 11:18] VITALS: BP 111/64; PULSE 58; TEMP 36.8; O2SAT 95
[2016-08-31 14:48] VITALS: BP 111/64; PULSE 58; TEMP 36.8; O2SAT 95
[2016-08-31] MEDS ORDERED: VST5 PO (14:56)
--- NOTE | 2016-08-31 15:00 | Discharge Instructions ---
Discharge Instructions Date of Service Aug 31, 2016. Admission Reason for Admission: New Onset A-Fib Discharge Discharge Diagnosis / Problem: Atrial fibrillation with rapid ventricular response, Discharge Goals Goal(s): Decrease discomfort, Improve function, Increase independence, Improve disease control, Improve nutritional status, Learn about illness, Diagnostic testing, Therapeutic intervention, Prevent Disease Progression, Specific goals Activity Recommendations Activity Limitations: resume your previous activity . Instructions / Follow-Up Instructions / Follow-Up you ahve Atrial fibrillation with rapid ventricular response resolved marion ahve Coronary artery disease, status post angioplasty and stenting to an unknown vessel in 2009. we are giving you enalapril for blood pressure control - you need to follow up with your primary care physician in 1 week, - you need to follow up with collection clerk as instructed - take medication as instructed, never overdose or any misuse, or take with alcohol, because misuse of medicine may cause organ damage or , call your primary care physician if have questions of medicaitons. - call your primary care physician OR go to local emergency room if has any fever/chill, chest pain, shortness of breathing, nausea/vomiting/abdominal pain , facial droop/slurry speech/local weakness, or if has any questions. - fall precaution - diet as instructed - you need to follow up with your subspecialist - you should understand that it is important to follow up the above instruction , and "not following the above instruction" may cause delayed or missed care of your medical conditions which may cause permanent organ damage and even . Current Hospital Diet Patient's current hospital diet: Low Sodium Diet (2gm Na), AHA Diet (Heart Healthy) Discharge Diet Recommended Diet: AHA Diet (Heart Healthy) Procedures Procedures Performed: no Pending Studies Studies pending at discharge: no Medical Emergencies . Who to Call and When: Medical Emergencies: If at any time you feel your situation is an emergency, please call 911 immediately. . Non-Emergent Contact Non-Emergency issues call your: Primary Care Provider, Rail Operator . . "Provider Documentation" section prepared by Mor Cuellar. . VTE Core Measure Inpt VTE Proph given/why not?: Unfractionated heparin SQ
[2016-08-31] MEDS ORDERED: METO50TA16 PO (15:07)
--- NOTE | 2016-08-31 17:28 | Discharge Summary ---
Discharge Summary Date of Service Aug 31, 2016. Discharge Summary Admission Date: Aug 29, 2016 at 18:20 Discharge Date: Aug 31, 2016 Discharge Disposition: Home Principal Diagnosis: Atrial fibrillation with rapid ventricular response Problems/Secondary Diagnoses: Coronary artery disease, status post angioplasty and stenting HTN Immunizations: Have You Had Influenza Vaccine: No History of Tetanus Vaccine?: Yes History of Pneumococcal: Yes History of Hepatitis B Vaccine: Yes Procedures: no Consultations: cardio Medication Reconciliation New Medications: Enalapril Maleate (Enalapril Maleate) 5 Mg Tab 5 MG PO BID for 30 Days, #60 TAB Metoprolol Tartrate (Lopressor) (Lopressor) 50 Mg Tab 100 MG PO BID for 30 Days, #120 TAB Continued Medications: Aspirin (Aspirin Ec) 81 Mg Tab 81 MG PO QAM Atorvastatin (Lipitor) 40 Mg Tab 40 MG PO HS Clopidogrel (Plavix) 75 Mg Tab 75 MG PO QAM Famotidine (Pepcid) 20 Mg Tab 20 MG PO QAM Isosorbide Mononitrate Ext Rel (Imdur Ext Rel) 120 Mg Ertab 120 MG PO BID Methimazole (Tapazole) 5 Mg Tab 2.5 MG PO QAM Metoprolol Tartrate (Lopressor) (Lopressor) 100 Mg Tab 100 MG PO BID Multiple Minerals W/ Vitamins (Citracal Plus) 1 Tab Tab 1 TAB PO QAM Multiple Vitamins W/ Minerals (Centrum) 1 Tab Tab 1 TAB PO QAM Oxycodone/Acetaminophen 5MG/325MG (Percocet 5MG/325MG) Tab 1-2 TABLETS PO Q4H PRN for Pain PAIN Discharge Exam doing well, sitting up in chair Review of Systems: Constitutional: No fever, No chills, No sweats, No weight loss, No weakness , No fatigue, No problem reported Eyes: No worsening of vision, No eye pain, No redness, No discharge, No diplopia, No problem reported ENT: No hearing loss, No unusual epistaxis, No nasal symptoms, No sore throat, No tinnitus, No dental problems, No trouble swallowing, No problem reported Respiratory: No cough, No sputum, No wheezing, No shortness of breath, No dyspnea on exertion, No dyspnea at rest, No hemoptysis, No problem reported Cardiovascular: No chest pain, No orthopnea, No PND, No edema, No claudication, No palpitations, No problem reported Abdomen: No pain, No nausea, No vomiting, No diarrhea, No constipation, No GI bleeding, No problem reported Musculoskeletal: No joint pain, No muscle pain, No swelling, No calf pain, No problem reported Genitourinary - Female: No dysuria, No urinary frequency, No urinary urgency , No urinary incontinence, No urinary retention, No hematuria, No dysmenorrhea, No menorrhagia, No metrorrhagia, No rash, No vaginal bleeding, No vaginal discharge, No vaginal itching, No vulvodynia, No , No problem reported Neurologic: No memory loss, No paralysis, No weakness, No numbness/tingling , No vertigo, No balance problems, No problem reported Psychiatric: No depression symptoms, No anhedonism, No anxiety, No insomnia , No substance abuse, No problem reported Endocrine: No fatigue, No excessive thirst, No excessive urination, No problem reported Hematologic / Lymphatic: No abnormal bleeding/bruising, No clotting problems , No swollen lymph nodes, No night sweats, No problem reported Physical Exam: General Appearance: WD/WN, no apparent distress Eyes: normal inspection, PERRL ENT: normal ENT inspection, hearing grossly normal Neck: supple, no adenopathy, thyroid normal Respiratory/Chest: chest non-tender, lungs clear, normal breath sounds, no respiratory distress, no accessory muscle use, + decreased breath sounds Cardiovascular: regular rate, rhythm, no edema, no gallop, no JVD, no murmur , normal peripheral pulses Abdomen / GI: normal bowel sounds, non tender, soft, no organomegaly, no pulsatile mass Extremities: normal inspection, no calf tenderness, normal capillary refill , no pedal edema, normal range of motion Neurologic/Psychiatric: strap sewer II-XII nml as tested, no motor/sensory deficits , alert, normal mood/affect, normal reflexes, oriented x 3 Skin: normal color, warm/dry Hospital Course 86-year-old white female admitted on 08/29/2016 because of A. fib with rapid glandular response Atrial fibrillation with rapid ventricular response, likely related to missing at least 2 potentially 4 doses of metoprolol, stable, was converted normal sinus continue to be stable today Minimal troponin elevation, possible from demand ischemia; tn has trends down, hx of Coronary artery disease, status post angioplasty and stenting to an unknown vessel in 2009. Will order another set of troponin , reactive stable, continue heparin until cardiology clarified Accelerated Hypertension. started ACEI Hyperlipidemia. Fasting lipid panel ordered Plan; Ana Cristina nuñez was converted by IV metoprolol, denies ever having an episode where she felt like this in the past as if we think she is having recurrent atrial fibrillation with her hyperthyroidism that would put her at high risk for having cardioembolic events. Director Medicaid saw the patient , continue current medication , includes BB, aggressively treat hypertension , by adding aCEI, no planning to stress testing or cardiac catheterization. I gave Rx of Enalapril Maleate 5 Mg Tab , and Metoprolol Tartrate (Lopressor) ( Lopressor) 50 Mg Tab to patient, advised pt and fam to call pcp jake the follow up Dc instruction: you ahve Atrial fibrillation with rapid ventricular response resolved marion ahve Coronary artery disease, status post angioplasty and stenting to an unknown vessel in 2009. we are giving you enalapril for blood pressure control - you need to follow up with your primary care physician in 1 week, - you need to follow up with production clerks supervisor as instructed - take medication as instructed, never overdose or any misuse, or take with alcohol, because misuse of medicine may cause organ damage or , call your primary care physician if have questions of medicaitons. - call your primary care physician OR go to local emergency room if has any fever/chill, chest pain, shortness of breathing, nausea/vomiting/abdominal pain , facial droop/slurry speech/local weakness, or if has any questions. - fall precaution - diet as instructed - you need to follow up with your subspecialist - you should understand that it is important to follow up the above instruction , and "not following the above instruction" may cause delayed or missed care of your medical conditions which may cause permanent organ damage and even . Total Time Spent: Less than 30 minutes This includes examination of the patient, discharge planning, medication reconciliation, and communication with other providers. Discharge Instructions Please refer to the electronic Patient Visit Report (Discharge Instructions) for additional information. Additional Copies To Moo Bonilla DO; Nadine Fraser, DO
== END 2016-08-31 15:45 | disposition home or self-care (01) | DRG 309 ==
LOC: C.EDB 15:46 → C.2T 18:20 → EDBEDREQSVC 18:46 → EDBEDREQ 18:48 → ENRESERV 18:48
PROVIDERS: ADMIT Internal Medicine; ATTEND Hospitalist
DX: I48.91 Unspecified atrial fibrillation (principal); I24.8 Other forms of acute ischemic heart disease; I10 Essential (primary) hypertension; E78.5 Hyperlipidemia, unspecified; E05.90 Thyrotoxicosis, unspecified without thyrotoxic crisis or storm; Z79.02 Long term (current) use of antithrombotics/antiplatelets; Z79.82 Long term (current) use of aspirin; Z79.899 Other long term (current) drug therapy

== ENCOUNTER → 2016-12-02 | Outpatient (CLI) | payer BC ==
[~2016-12-02] MED LIST changes: +ASPI81TA28 PO; +ATOR-24 PO; -CENTRUM SIVER PO; -CILO50TA9 PO; -CITRACAL PO; +CLOP1TAB15 PO; -CRDCD240 PO; +FAMO20TA11 PO; -FENO200C6 PO; +ISOS120T5 PO; +METH5TAB5 PO; +METO100T14 PO; +METO50TA16 PO; +MULT-663 PO; +MULTTAB5 PO; +OXYC-57 PO; +VST5 PO
[2016-12-03 05:57] LABS: ESTIMATED AVERAGE GLUCOSE 126 mg/dl; HA1C FLAG Normal (Normal)
== END | disposition home or self-care (01) ==
LOC: C.LAB1850 13:43
PROVIDERS: ATTEND Nurse Practitioner Adult Health
DX: R73.03 Prediabetes (principal)

== ENCOUNTER → 2016-12-08 | Outpatient (CLI) | payer BC ==
--- NOTE | 2016-12-08 13:49 | DIAGNOSTIC IMAGING REPORT ---
BILATERAL LOWER EXTREMITY VENOUS DOPPLER HISTORY: Acute left lower extremity swelling. M79.89 Swelling of left lower [id number] COMPARISON STUDY: None. FINDINGS: There is normal compressibility, flow, and augmentation within the left lower extremity deep venous system. IMPRESSION: No DVT within the left lower extremity. Electronically signed by: Darell Gupta M.D. 12/08/2016 1:48 PM Dictated Date/Time: 12/08/2016 1:47 PM
--- NOTE | 2016-12-15 06:55 | CODING QUERY MEDICAL NECESSITY ---
SUPPORTING DIAGNOSIS NEEDED Ritter BLAIR, A supporting diagnosis is required for the test/procedure performed on this patient in order for us to be reimbursed by the patient's insurance. Please provide a supporting diagnosis for the following test/procedure listed below next to the test name along with your signature. *If there is no additional diagnosis for this patient that would support the following test/procedure please document that below next to the test/procedure. Test(s)/Procedure(s) that require a supporting diagnosis: * ([id number]) VENOUS DOPPLER LOWER EXT UNILA DIAGNOSIS: DATE OF SERVICE: 12/08/16 Provider Signature: Date: Thank you Gregory Palacios [facility] Information Management Once completed, please kindly fax back to [phone] For questions please call [phone]
== END | disposition home or self-care (01) ==
LOC: C.ULTR 13:07
PROVIDERS: ATTEND Nurse Practitioner Adult Health
DX: M79.89 Other specified soft tissue disorders (principal)

== ENCOUNTER → 2017-06-01 | Outpatient (CLI) | payer BC | END | disposition home or self-care (01) | LOC: C.LAB1850 16:08 | PROVIDERS: ATTEND Physician Assistant | DX: E05.20 Thyrotoxicosis with toxic multinodular goiter without thyrotoxic crisis or storm (principal) ==

== ENCOUNTER 2018-03-28 12:20 | Inpatient (IN) ==
[~2018-03-28 12:20] MED LIST changes: -ASPI81TA28 PO; -ATOR-24 PO; -CLOP1TAB15 PO; -FAMO20TA11 PO; -ISOS120T5 PO; +MAG SULFATE 50% 1GM/2ML VIAL IV ONE; -METH5TAB5 PO; -METO100T14 PO; -METO50TA16 PO; -MULT-663 PO; -MULTTAB5 PO; -OXYC-57 PO; +SODIUM CHLORIDE 0.9% 10ML FLUSH IV ONE; +SODIUM CHLORIDE 0.9% INJ 10 ML VIAL IV ONE; -VST5 PO
[2018-03-28] MEDS ORDERED: SODIUM CHLORIDE 0.9% 1000ML 1,000 ML IV ONE (12:40)
--- NOTE | 2018-03-28 13:02 | Emergency Department Note ---
Entered by Katie Garcia acting as a scribe for History of Present Illness General Chief complaint: Confusion Stated complaint: PAIN, CONFUSION,NOT MOBILE, LOW BP Source: patient and family History of Present Illness Provider complaint: confusion Onset (ago): week(s) (over the last 3-4 weeks) Location: head Maximum Pain Intensity: 8 Quality: + other (confusion) Associated symptoms: + weakness and + other (generalized pain); no chest pain, no fever/chills and no shortness of breath The patient is an 87 year old female who presents to the Emergency Room with confusion over the last 3-4 weeks. Per family, the patient has had 3 recent falls. Her family states that the patient started to become immobile at the end of December secondary to knee pain. Per family, it was determined that the patient has PAD. Her family states that the patient has generalized pain and has been unable to walk secondary to leg weakness. Her family also states that the patient has been more confused and has been crying. Her family states that the patient's blood pressure is usually low. Her family states that the patient has not had recent fevers. She denies having chest pain or shortness of breath. Per family, the patient has a history of a stent placement. Her family states that the patient is currently on Cipro. Her family also reports that the patient takes Plavix. Home Medications Home Medications Medication Instructions Recorded Confirmed Type aspirin [Aspirin Low Dose] 81 mg PO QAM 02/10/18 03/16/18 History atorvastatin 40 mg PO HS 02/10/18 03/16/18 History diclofenac sodium 1 dose TOPICAL DAILY PRN MDD 4 02/10/18 03/16/18 History DOSES enalapril maleate 10 mg PO BID 02/10/18 03/16/18 History escitalopram oxalate 5 mg PO HS 02/10/18 03/16/18 History famotidine 20 mg PO QAM 02/10/18 03/16/18 History isosorbide mononitrate 120 mg PO BID 02/10/18 03/16/18 History loratadine 10 mg PO HS 02/10/18 03/16/18 History methimazole 10 mg PO QAM 02/10/18 03/16/18 History metoprolol tartrate 50 mg PO BID 02/10/18 03/16/18 History collagenase clostridium 1 applic TOP DAILY #30 gm 02/14/18 03/01/18 Rx histolyticum 250 unit/gram topical ointment clopidogrel 75 mg PO QAM 30 Days #30 tab 03/01/18 03/16/18 Rx diphenhydramine HCl [Benadryl] 25 mg PO Q4H PRN 30 Days #60 cap 03/01/18 Rx ciprofloxacin 500 mg tablet 500 mg PO BID 03/03/18 03/16/18 History oxycodone-acetaminophen 7.5 mg-325 1 tab PO Q8H PRN tab 03/24/18 03/24/18 History mg tablet Allergies Allergy/AdvReac Type Severity Reaction Status Date / Time amlodipine Allergy Unknown UNKNOWN Verified 03/24/18 08:48 morphine Allergy Unknown UNKNOWN Verified 03/24/18 08:48 moxifloxacin Allergy Unknown UNKNOWN Verified 03/24/18 08:48 Quinolones Allergy Unknown . 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) HTN (hypertension) (Chronic) Thyroid disease (Chronic) New onset a-fib Surgical History Status post blepharoplasty of both eyes (Acute) S/P angioplasty (Resolved) Social History marital status: Current Living Situation: Spouse current occupational status: retired current occupation: retired Feels Safe at Home: Yes Smoking Status: Never smoker Tobacco Type: cigarettes Second Hand Exposure: No Hx Alcohol Use: Yes Alcohol Intake Frequency: holidays/special occasions only Hx Substance Use: No Beliefs That Will Affect Care: None Preferred Language: [place] Review of Systems See HPI for pertinent positives & negatives. and A total of 10 systems reviewed and were otherwise negative Physical Exam Vital Signs Vital Signs - 24 hr 03/28/18 12:22 03/28/18 12:47 03/28/18 14:12 Temperature Source Oral Sepsis Recent Fever Within 48 Hours No Sepsis New/Unexplained Change in Mental Status No Sepsis Action Taken by Nursing No Action Required Pulse Rate 66 Pulse Rate [Apical] 86 Pulse Rhythm Regular Pulse Rhythm [Apical] Regular Pulse Strength [Apical] Normal Respiratory Rate 22 16 18 Respiratory Effort / Characteristics Non-Labored Spontaneous Respiratory Depth Normal Normal Respiratory Pattern Regular Blood Pressure 127/60 Blood Pressure [Left Arm] 137/67 Blood Pressure Mean 82 Blood Pressure Mean [Left Arm] 90 Blood Pressure Position [Left Arm] Lying Pulse Oximetry 100 95 Oxygen Delivery Method Room Air Room Air GENERAL: The patient is awake and alert. She is not anxious appearing and comfortable. EYES: The conjunctivae are clear. The pupils are round and reactive. EARS, NOSE, MOUTH AND THROAT: The nose is without any evidence of any deformity. Mucous membranes are moist tongue is midline. There is periorbital ecchymosis noted on the left eye and left forehead. NECK: The neck is nontender and supple. RESPIRATORY: Normal respiratory effort is noted there is no evidence of wheezing rhonchi or rales CARDIOVASCULAR: Regular rate and rhythm noted there no murmurs rubs or gallops normal S1 normal S2 GASTROINTESTINAL: The abdomen is soft. Bowel sounds are present in all quadrants. Abdomen is nontender MUSCULOSKELETAL/EXTREMITIES: There is no evidence of gross deformity full range of motion is noted in the hips and shoulders SKIN: There is pedal edema noted bilaterally. Skin is warm and dry. Wound dressings are in place on both lower extremity's. There is ecchymosis over the lateral aspect of the left knee. NEUROLOGIC: Patient is awake alert and oriented x3. Strength is symmetric but diminished. RECTAL: Brown stool, trace heme positive. Course 1231: Past medical records reviewed. The patient was evaluated in room B11A, and a complete history and physical examination were performed. 1429: I updated the patient and her family. I performed a rectal exam on the patient. 1434: I discussed the patient's case with Dr. Reba Bass who will evaluate the patient for further management. Consultations Consultation #1: Dr. Reba Bass Time: 14:34 Administered Medications Discontinued Medications Sodium Chloride (Nss 1000ml) 1,000 mls @ 999 mls/hr IV .Q1H1M ONE Stop: 03/28/18 13:40 Last Infusion: 03/28/18 14:33 Dose: 0 mls/hr Admin: 03/28/18 13:36 Dose: 999 mls/hr Oxycodone/Acetaminophen (Percocet 5mg/325mg) 1 tab PO NOW STA Stop: 03/28/18 14:34 Last Admin: 03/28/18 14:41 Dose: 1 tab Medical Decision Making Differential Diagnosis Differentials include: ICH, CVA, PNA, bronchitis, PE, UTI, gastroenteritis, electrolyte abnormality, ACS, CHF among others. Medical Records Attestation: I reviewed the patient's medical records. Home Medications Current Medication List: was personally reviewed by me Laboratory Data Attestation: I reviewed the patient's lab results. Result diagrams: 03/28/18 13:30 03/28/18 13:30 Lab Results 03/28/18 03/28/18 03/28/18 Range/Units 13:30 13:30 13:30 WBC 8.51 (4.8-10.8) K/uL RBC 2.97 L (4.2-5.4) M/uL Hgb 8.9 L (12.0-16.0) g/dL Hct 28.2 L (37-47) % MCV 94.9 (80-100) fL MCH 30.0 (25-34) pg MCHC 31.6 L (32-36) g/dL RDW Std Deviation 55.9 H (36.4-46.3) fL RDW Coeff of Ari 16.1 H (11.5-14.5) % Plt Count 247 (130-400) K/uL MPV 9.7 (7.4-10.4) fL Immature Gran % (Auto) 0.4 % Neut % (Auto) 68.6 % Lymph % (Auto) 13.5 % [place] % (Auto) 13.5 % Eos % (Auto) 3.4 % Baso % (Auto) 0.6 % Immature Gran # (Auto) 0.03 H (0.00-0.02) K/uL Neut # (Auto) 5.84 (1.4-6.5) K/uL Lymph # (Auto) 1.15 L (1.2-3.4) K/uL [place] # (Auto) 1.15 H (0.11-0.59) K/uL Eos # (Auto) 0.29 (0-0.5) K/uL Baso # (Auto) 0.05 (0-0.2) K/uL RBC Morphology Unremarkable ESR 60 H (0-21) mm/hr PT 10.9 (9.0-12.0) Seconds INR 1.1 (0.9-1.1) APTT 26.8 (21.0-31.0) Seconds PTT Ratio 1.0 Sodium (136-145) mmol/L Potassium (3.5-5.1) mmol/L Chloride (98-107) mmol/L Carbon Dioxide (21-32) mmol/L Anion Gap (3-11) BUN (7-18) mg/dl Creatinine (0.6-1.2) mg/dl Est Cr Clr Drug Dosing ml/min Est GFR ( Amer) Est GFR (Non-Af Amer) BUN/Creatinine Ratio (10-20) Glucose (70-99) mg/dl Lactate (0.4-2.0) mmol/L Calcium (8.5-10.1) mg/dl Magnesium (1.8-2.4) mg/dl Total Bilirubin (0.2-1) mg/dl AST (15-37) U/L ALT (12-78) U/L Alkaline Phosphatase (45-117) U/L Troponin I (0-0.045) ng/ml C-Reactive Protein (0-0.29) mg/dl Total Protein (6.4-8.2) gm/dl Albumin (3.4-5.0) gm/dl Globulin (2.5-4.0) gm/dl Albumin/Globulin Ratio (0.9-2) Specimen Hemolysis 03/28/18 03/28/18 Range/Units 13:30 13:30 WBC (4.8-10.8) K/uL RBC (4.2-5.4) M/uL Hgb (12.0-16.0) g/dL Hct (37-47) % MCV (80-100) fL MCH (25-34) pg MCHC (32-36) g/dL RDW Std Deviation (36.4-46.3) fL RDW Coeff of Ari (11.5-14.5) % Plt Count (130-400) K/uL MPV (7.4-10.4) fL Immature Gran % (Auto) % Neut % (Auto) % Lymph % (Auto) % [place] % (Auto) % Eos % (Auto) % Baso % (Auto) % Immature Gran # (Auto) (0.00-0.02) K/uL Neut # (Auto) (1.4-6.5) K/uL Lymph # (Auto) (1.2-3.4) K/uL [place] # (Auto) (0.11-0.59) K/uL Eos # (Auto) (0-0.5) K/uL Baso # (Auto) (0-0.2) K/uL RBC Morphology ESR (0-21) mm/hr PT (9.0-12.0) Seconds INR (0.9-1.1) APTT (21.0-31.0) Seconds PTT Ratio Sodium 138 (136-145) mmol/L Potassium 5.1 (3.5-5.1) mmol/L Chloride 108 H (98-107) mmol/L Carbon Dioxide 23 (21-32) mmol/L Anion Gap 7.0 (3-11) BUN 74 H (7-18) mg/dl Creatinine 1.33 H (0.6-1.2) mg/dl Est Cr Clr Drug Dosing 25.6 ml/min Est GFR ( Amer) 42.1 Est GFR (Non-Af Amer) 36.4 BUN/Creatinine Ratio 55.7 H (10-20) Glucose 94 (70-99) mg/dl Lactate 1.9 (0.4-2.0) mmol/L Calcium 8.5 (8.5-10.1) mg/dl Magnesium 2.1 (1.8-2.4) mg/dl Total Bilirubin 0.4 (0.2-1) mg/dl AST 26 (15-37) U/L ALT 15 (12-78) U/L Alkaline Phosphatase 66 (45-117) U/L Troponin I < 0.015 (0-0.045) ng/ml C-Reactive Protein 4.24 H (0-0.29) mg/dl Total Protein 6.8 (6.4-8.2) gm/dl Albumin 2.7 L (3.4-5.0) gm/dl Globulin 4.1 H (2.5-4.0) gm/dl Albumin/Globulin Ratio 0.7 L (0.9-2) Specimen Hemolysis Imaging Data Radiologist's Impression: Radiology results as stated below per my review and the radiologist's interpretation: XR chest 1V portable CLINICAL HISTORY: Sepsis. COMPARISON STUDY: Chest radiograph August 29, 2016. FINDINGS: Lung volumes are normal. There is no pneumothorax or pleural effusion. There is no consolidation or evidence for pulmonary edema. A small hiatal hernia is noted. Cardiomediastinal silhouette is stable. Appearance of the chest is unchanged. Calcified left lobe thyroid nodule is incidentally noted. IMPRESSION: No acute cardiopulmonary findings. Electronically signed by: Santo Avendano M.D. 03/28/2018 1:[address] OF THE HEAD WITHOUT CONTRAST CLINICAL HISTORY: Fall. COMPARISON STUDY: Head CT January 11, 2007. CT DOSE: 638.56 mGycm TECHNIQUE: Helical axial images of the head were obtained without IV contrast. Automated exposure control was utilized for the study. A dose lowering technique was utilized adhering to the principles of ALARA. FINDINGS: No acute intracranial hemorrhage, midline shift or mass effect is present. Ventricular system is normal. Basilar cisterns are patent. There are no extra-axial collections. Rush-white differentiation is maintained. There are no findings to suggest acute dural sinus thrombosis or acute territorial infarct. Mild white matter hypodensity suggests small vessel disease. There is no calvarial fracture. IMPRESSION: 1. No acute intracranial findings. 2. No calvarial fracture. Electronically signed by: Santo Avendano M.D. 03/28/2018 2:21 PM ECG Data Attestation: I personally reviewed and interpreted this ECG as follows: Indication: weakness Rate (beats per minute): 69 Rhythm: normal sinus Findings: no PAC, no PVC, no ST depression, no ST elevation and no ectopy Comparison ECG Date: from (09/21/17) Change: no significant change Blood Pressure Blood Pressure Findings: Normal blood pressure MDM Narrative The patient is a an 87-year-old female who presented to the emergency department for an evaluation the patient had recent decline in her health. She has venous stasis ulcers of both lower extremities. She has very significant peripheral artery disease which is managed by Plavix as well as baby aspirin. The patient has Cipro that she takes at this point for the healing stasis ulcers on her legs. She also sees her primary chief yeoman for peripheral vascular disease and had a recent procedure in her left groin. The patient was seen in follow-up today by her primary chief yeoman. He felt that her condition was worsening including hypotension and altered mental status with frequent falls. For this reason she was sent to the emergency department for further evaluation. The patient was afebrile. She was treated with IV fluids. She was found to have anemia which is new compared to her most recent laboratory studies in February 2018. Her BUN is elevated compared to her creatinine. Rectal exam did reveal heme positive stool. The patient was treated with Protonix in the emergency department. I discussed the patient's laboratory and radiographic studies with her and her family members. I also discussed her case with the on-call [facility] hospitalist. They have agreed to evaluate the patient in the emergency department for further management and disposition. Impression & Plan Weakness, Anemia, Peripheral vascular disease, Upper GI bleed Discharge Plan Visit Data Chief Complaint: Confusion Stated Complaint: PAIN, CONFUSION,NOT MOBILE, LOW BP ED Provider: Santino Lara Discharge Problem: Weakness, Anemia, Peripheral vascular disease, Upper GI bleed Patient Disposition: Being Evaluated by Hospitalist Forms Stand Alone Forms: My [facility] Prescriptions Prescriptions: No Action collagenase clostridium histo. [Santyl] 250 unit/gram ointment 1 applic TOP DAILY Qty: 30 RF: 1 ciprofloxacin HCl [Cipro] 500 mg tablet 500 mg PO BID RF: 0 oxycodone-acetaminophen [Endocet] 7.5-325 mg tablet 1 tab PO Q8H PRN (Reason: pain) RF: 0 atorvastatin 40 mg tablet 40 mg PO HS RF: 0 enalapril maleate 10 mg tablet 10 mg PO BID RF: 0 isosorbide mononitrate 120 mg tablet extended release 24 hr 120 mg PO BID RF: 0 aspirin [Aspirin Low Dose] 81 mg Tablet,Delayed Release (Dr/Ec) 81 mg PO QAM RF: 0 famotidine 20 mg Tablet 20 mg PO QAM RF: 0 metoprolol tartrate 50 mg tablet 50 mg PO BID RF: 0 methimazole 5 mg tablet 10 mg PO QAM RF: 0 loratadine 10 mg Tablet 10 mg PO HS RF: 0 escitalopram oxalate 5 mg tablet 5 mg PO HS RF: 0 diclofenac sodium 1 % gel 1 dose Topical DAILY MDD 4 DOSES PRN (Reason: Pain) RF: 0 clopidogrel 75 mg Tablet 75 mg PO QAM 30 Days Qty: 30 RF: 1 diphenhydramine HCl [Benadryl] 25 mg Capsule 25 mg PO Q4H PRN (Reason: Rash) 30 Days Qty: 60 RF: 0 Referrals Referrals: Anders Tirado, DO [Primary Care Provider] - The scribe's documentation has been prepared under my direction and personally reviewed by me in its entirety. I confirm that the note above accurately reflects all work, treatment, procedures, and medical decision making performed by me.
--- NOTE | 2018-03-28 13:08 | XRay Report ---
XR chest 1V portable CLINICAL HISTORY: Sepsis. COMPARISON STUDY: Chest radiograph August 29, 2016. FINDINGS: Lung volumes are normal. There is no pneumothorax or pleural effusion. There is no consolid ation or evidence for pulmonary edema. A small hiatal hernia is noted. Cardiomediastinal silhouette i s stable. Appearance of the chest is unchanged. Calcified left lobe thyroid nodule is incidentally no cristy. IMPRESSION: No acute cardiopulmonary findings. Electronically signed by: Santo Avendano M.D. 03/28/2018 1:07 PM
[2018-03-28 13:42] LABS: Basophils # (auto) 0.05 K/uL (0-0.2); Basophils % (auto) 0.6 %; Eosinophils # (auto) 0.29 K/uL (0-0.5); Eosinophils % (auto) 3.4 %; Hematocrit (blood only) 28.2 % (37-47); Hemoglobin 8.9 g/dL (12.0-16.0); Immature Granulocytes # (auto) 0.03 K/uL (0.00-0.02); Immature Granulocytes % (auto) 0.4 %; Lymphocytes # (auto) 1.15 K/uL (1.2-3.4); Lymphocytes % (auto) 13.5 %; Mean Corpuscular Hgb Conc 31.6 g/dL (32-36); Mean Corpuscular Volume 94.9 fL (80-100); Mean Platelet Volume 9.7 fL (7.4-10.4); Monocytes # (auto) 1.15 K/uL (0.11-0.59); Monocytes % (auto) 13.5 %; Neutrophils # (auto) 5.84 K/uL (1.4-6.5); Neutrophils % (auto) 68.6 %; Platelet Count 247 K/uL (130-400); RDW Coefficient of Variation 16.1 % (11.5-14.5); RDW Standard Deviation 55.9 fL (36.4-46.3); Red Blood Count 2.97 M/uL (4.2-5.4); White Blood Count 8.51 K/uL (4.8-10.8)
[2018-03-28 13:58] LABS: INR 1.1 (0.9-1.1); Partial Thromboplastin Time 26.8 Seconds (21.0-31.0); Prothrombin Time 10.9 Seconds (9.0-12.0)
[2018-03-28 14:00] LABS: Alanine Aminotransferase 15 U/L (12-78); Albumin Level 2.7 gm/dl (3.4-5.0); Aspartate Aminotransferase 26 U/L (15-37); BUN Creatinine Ratio 55.7 (10-20); Blood Urea Nitrogen 74 mg/dl (7-18); C Reactive Protein 4.24 mg/dl (0-0.29); Calcium 8.5 mg/dl (8.5-10.1); Carbon Dioxide 23 mmol/L (21-32); Chloride 108 mmol/L (98-107); Creatinine Clr Calc Pharmacy 25.6 ml/min; Est GFR (African American) 42.1; Est GFR (Non-African American) 36.4; Glucose 94 mg/dl (70-99); Magnesium 2.1 mg/dl (1.8-2.4); Potassium 5.1 mmol/L (3.5-5.1); Sodium 138 mmol/L (136-145)
[2018-03-28 14:03] LABS: Albumin Globulin Ratio 0.7 (0.9-2); Alkaline Phosphatase 66 U/L (45-117); Bilirubin,Total 0.4 mg/dl (0.2-1); Globulin 4.1 gm/dl (2.5-4.0); Total Protein 6.8 gm/dl (6.4-8.2); Troponin I < 0.015 ng/ml (0-0.045)
[2018-03-28 14:13] LABS: RBC Morphology Unremarkable
--- NOTE | 2018-03-28 14:22 | CT Scan Report ---
CT OF THE HEAD WITHOUT CONTRAST CLINICAL HISTORY: Fall. COMPARISON STUDY: Head CT January 11, 2007. CT DOSE: 638.56 mGycm TECHNIQUE: Helical axial images of the head were obtained without IV contrast. Automated exposure con trol was utilized for the study. A dose lowering technique was utilized adhering to the principles o f ALARA. FINDINGS: No acute intracranial hemorrhage, midline shift or mass effect is present. Ventricular syst em is normal. Basilar cisterns are patent. There are no extra-axial collections. Rush-white different iation is maintained. There are no findings to suggest acute dural sinus thrombosis or acute territor ial infarct. Mild white matter hypodensity suggests small vessel disease. There is no calvarial fract ure. IMPRESSION: 1. No acute intracranial findings. 2. No calvarial fracture. Electronically signed by: Santo Avendano M.D. 03/28/2018 2:21 PM
[2018-03-28] MEDS ORDERED: PANTOprazole 40 MG in SYRINGE 0 ML IV ONE (14:31)
[2018-03-28] MEDS ORDERED: OXYCODONE/ACETAMINOPHEN 5mg/325mg TAB PO STA (14:33)
--- NOTE | 2018-03-28 15:28 | History & Physical Report ---
Date of Service March 28, 2018 Assessment & Plan (1) Upper GI bleed: Admit to [facility] with telemetry -Heme stool positive in the ER -Hemoglobin of 8.9 currently -Patient was initially hypotensive, BP is 90/51 during the time of my eval after 1L NSS. Continue on NSS at 125 mL/h x 24 hours -Will obtain blood consent at this time in case, do not transfuse unless hemoglobin drops to ~7 (2) Anemia: - Check ferritin, transferrin, B12, TSH for other causes of anemia - As above (3) Weakness: -PT/OT eval's -Hold percocet as opiod may be contributing (4) Peripheral arterial disease: -Followed up with Dr. Brown after left leg venous stripping prior to admission, arterial Doppler conducted in office earlier today was good per patient report -There is discussion regarding doing the same for the right leg in future - adequate LLE pulses on exam, Right posterior tibilal pulse is limited but present (5) Peripheral vascular disease: -Adding to delayed healing of chronic lower extremity wounds (6) Chronic kidney disease: -Creatinine 1.33, baseline appears to be around 1.3 -Monitor with a.m. PRP -Continue fluids as above (7) Venous stasis ulcers of both lower extremities: -Wound consulted, follows with wound as an outpatient -Patient has been drinking boost daily as well as taking arginine powder as outpt to promote healing -Secondary to PAD/PVD -Pain relief with Percocet 7.5/325 as outpatient - will hold for now in the setting of increased confusion -Trial gabapentin 100 mg HS for neuropathic pain and titrate up. 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 Hold chemical anticoagulation in the setting of anemia/GI bleed. Dayteam to add DVT ppx if hgb stable tomorrow morning. History of Present Illness Primary Care Provider: Anders Tirado, DO This is a 87 yo F with PMHx of PAD, PVD, chronic lower extremity wounds which have grown MSSA and pseudomonas on cipro, frequent falls, anemia, CKD stage III , calciphylaxis, depression, anxiety, found to be anemic with hgb 8.9 upon presentation to the ER today. Pt had heme + stool. Her , son, daughter are present at bedside. Her daughter supports most of the history due to the patient having some increased confusion lately. Daughter notes that she fell on 03/25 and 03/26 while she was getting out of bed, and once in the middle the night. She has multiple areas of bruising, one on her right shoulder, both legs and around her left eye. She has become progressively weak over the past 3 months. Prior to then she was able to walk without any assistive devices and without pain. Pt reports having generalized pain all over, but specifically in her legs. It is a constant dull pain in her muscles, and worse in her large joints with any movement. Allergies Allergy/AdvReac Type Severity Reaction Status Date / Time amlodipine Allergy Unknown UNKNOWN Verified 03/28/18 15:03 morphine Allergy Unknown UNKNOWN Verified 03/28/18 15:03 moxifloxacin Allergy Unknown UNKNOWN Verified 03/28/18 15:03 Quinolones Allergy Unknown . Verified 03/28/18 15:03 Home Medications Home Medications Medication Instructions Recorded Confirmed Type aspirin [Aspirin Low Dose] 81 mg PO QAM 02/10/18 03/28/18 History atorvastatin [Lipitor] 40 mg PO HS 02/10/18 03/28/18 History diclofenac sodium [Voltaren] 1 dose TOPICAL DAILY PRN MDD 4 02/10/18 03/28/18 History DOSES enalapril maleate [Vasotec] 10 mg PO BID 02/10/18 03/28/18 History escitalopram oxalate [Lexapro] 5 mg PO HS 02/10/18 03/28/18 History famotidine 20 mg PO QAM 02/10/18 03/28/18 History isosorbide mononitrate 120 mg PO BID 02/10/18 03/28/18 History loratadine 10 mg PO HS 02/10/18 03/28/18 History methimazole 10 mg PO QAM 02/10/18 03/28/18 History metoprolol tartrate [Lopressor] 50 mg PO BID 02/10/18 03/28/18 History collagenase clostridium 1 applic TOP DAILY #30 gm 02/14/18 03/28/18 Rx histolyticum 250 unit/gram topical ointment diphenhydramine HCl [Benadryl] 25 mg PO Q4H PRN 30 Days #60 cap 03/01/18 Rx ciprofloxacin 500 mg tablet 500 mg PO BID 03/03/18 03/28/18 History oxycodone-acetaminophen 7.5 mg-325 1 tab PO Q8H PRN tab 03/24/18 03/28/18 History mg tablet clopidogrel [Plavix] 75 mg PO QAM 03/28/18 03/28/18 History Past Med/Surg History Medical History Calciphylaxis Anxiety Frequent falls Depression Venous stasis ulcers of both lower extremities (Acute) Peripheral arterial disease (Chronic) Weakness (Acute) Anemia (Acute) Peripheral vascular disease (Acute) Upper GI bleed (Acute) Chronic kidney disease (Chronic) Blepharitis of both eyes (Acute) CAD (coronary artery disease) (Chronic) GERD (gastroesophageal reflux disease) (Chronic) 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) HTN (hypertension) (Chronic) Thyroid disease (Chronic) New onset a-fib Surgical History Status post blepharoplasty of both eyes (Acute) S/P angioplasty (Resolved) Social History marital status: Current Living Situation: Spouse and Family Current Living Situation Comment: Spouse and daughter Minoo current occupational status: retired current occupation: retired Other Information That Helps Us Care for You: No Feels Safe at Home: Yes Smoking Status: Former smoker Tobacco Type: cigarettes Hx Alcohol Use: No Hx Substance Use: No Beliefs That Will Affect Care: None Preferred Language: Czech Communication Ability: Impaired 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 Neurologic: + increased weakness, no numbness/tingling, + balance problems, + frequent falls Psychiatric: +anxiety and depression, on medication Skin: +multiple wound on lower extremities as per HPI. Physical Exam 2 Vital Signs (Past 24 Hours): Last Vital Signs Pulse 86 03/28/18 14:12 Resp 18 03/28/18 14:12 BP 137/67 03/28/18 14:12 Pulse Ox 95 03/28/18 14:12 Physical Exam: General: awake, alert, no apparent distress, multiple areas of ecchymosis, difficulty recalling events and providing history. Head: Normocephalic, area of ecchymosis involving the left orbit and forehead ENT: PERRL, EOMI, no pharyngeal exudate, mucous membranes moist Chest: Clear to auscultation, on room air, no adventitious breath sounds Cardiac: Regular rate and rhythm, no murmur, no JVD, normal peripheral pulses, good capillary refill Abdominal: NABS x 4 quadrants, soft, nontender to palpation, no rebound, guarding or tenderness Extremities: +Multiple areas of chronic wounds with mild erythema on BLE covered with dressing, + ecchymosis on the R shoulder, R knee, Left thigh, R toes, calfs nontender to palpation Psych: Normal mood and affect Neuro: AAO to self, has difficulty recalling events, providing history, strength diminished bilaterally and related 4/5, no motor deficits, speech is clear, no peripheral sensory deficits Constitutional: WD/WN, vitals as above Eyes: normal visual sparks by confrontation and + anicteric sclerae Neck: normal visual inspection and trachea midline Respiratory: normal respiratory effort, lungs clear to auscultation Cardiovascular: Rate/Rhythm: regular rate and regular rhythm Gastrointestinal (Abdomen): Inspection/Auscultation: abdomen not distended Percussion/Palpation: abdomen soft; abdomen nontender Musculoskeletal: Head/Neck/Chest: normocephalic slight L LE edema, + pedal pulses Very TTP along b/l LE diffusely Bruising to L eye and forehead, healing Skin: no rashes, warm and dry bruising noted Neurologic: awake; not confused (but does occasionally make comments that are not completely in line with current conversation) Speech / Cognition: normal speech Psychiatric: A+Ox3, euthymic affect Lymphatic: Exam as done by Lula Porter DO Results & Data Diagnostic Findings XR chest 1V portable CLINICAL HISTORY: Sepsis. COMPARISON STUDY: Chest radiograph August 29, 2016. FINDINGS: Lung volumes are normal. There is no pneumothorax or pleural effusion. There is no consolidation or evidence for pulmonary edema. A small hiatal hernia is noted. Cardiomediastinal silhouette is stable. Appearance of the chest is unchanged. Calcified left lobe thyroid nodule is incidentally noted. IMPRESSION: No acute cardiopulmonary findings. CT OF THE HEAD WITHOUT CONTRAST CLINICAL HISTORY: Fall. COMPARISON STUDY: Head CT January 11, 2007. CT DOSE: 638.56 mGycm TECHNIQUE: Helical axial images of the head were obtained without IV contrast. Automated exposure control was utilized for the study. A dose lowering technique was utilized adhering to the principles of ALARA. FINDINGS: No acute intracranial hemorrhage, midline shift or mass effect is present. Ventricular system is normal. Basilar cisterns are patent. There are no extra-axial collections. Rush-white differentiation is maintained. There are no findings to suggest acute dural sinus thrombosis or acute territorial infarct. Mild white matter hypodensity suggests small vessel disease. There is no calvarial fracture. IMPRESSION: 1. No acute intracranial findings. 2. No calvarial fracture. ECG Additional Comments: 28-MAR-2018 12:47:25 [facility] Normal sinus rhythm Septal infarct (cited on or before 21-SEP-2017) Abnormal ECG When compared with ECG of 21-SEP-2017 16:16, Premature atrial complexes are no longer Present Questionable change in initial forces of Septal leads Vent. rate 69 BPM MT interval 152 ms QRS duration 80 ms QT/QTc 404/432 ms P-R-T axes 62 23 33 Code Status & VTE Plan Code Status Full Supervising Physician Co-Signing Physician Notes Pt seen and examined by me. Denies chest pain or SOB. Tolerating PO without issue, but appetite is low. No gisselle blood noted, only easy bruising. Has been working with [facility] for LE wounds. Has a lot of nerve pain in LE. Family states that pt has no endurance, even to hold out her legs for exam with [facility]. Agree with HPI/ROS as noted by PA See above for my exam in PE section Agree with plan as outlined above Weakness and hypoTN, possible slow GIB given asp/plavix use and increased bruising Plavix had been used s/p stent for several years. Was stopped in October for increased bruising. Restarted in February s/p vascular surgery. Length of tx with plavix needs d/w Dr. Brown PT/OT for deconditioning WCC Holding HTN meds Start gabapentin 100mg HS for nerve pain Blood consent on file, no transfusion indicted at this time _ (1) Anemia Anemia type: unspecified type Bone marrow failure anemia type: Chronic kidney disease stage: Folate deficiency anemia type: Hemolytic anemia type: Iron deficiency anemia type: Other causes of anemia: Vitamin B12 deficiency anemia type: Qualified Code(s): D64.9 - Anemia, unspecified
[2018-03-28] MEDS ORDERED: DICLOFENAC SOD 1% GEL 100 GM TUBE EXT PRN (18:54)
[2018-03-28] MEDS ORDERED: ACETAMINOPHEN 325 MG TAB PO PRN (18:54)
[2018-03-28] MEDS ORDERED: ONDANSETRON INJ 2 MG/ML 2 ML VIAL IV PRN (18:54)
[2018-03-28 19:38] LABS: Creatine Kinase MB 2.4 ng/ml (0.5-3.6)
[2018-03-28] MEDS ORDERED: ATORVASTATIN 40 MG TAB PO SCH (21:00)
[2018-03-28] MEDS ORDERED: ESCITALOPRAM OXALATE 10 MG TAB PO SCH (21:00)
[2018-03-28] MEDS ORDERED: LORATADINE 10 MG TAB PO SCH (21:00)
[2018-03-28] MEDS ORDERED: ISOSORBIDE MONO EXTENDED REL 60 MG TABCR PO SCH (21:00)
[2018-03-28] MEDS ORDERED: ENALAPRIL MALEATE 10 MG TAB PO SCH (21:00)
[2018-03-28] MEDS ORDERED: GABAPENTIN 100 MG CAP PO SCH (21:00)
[2018-03-28] MEDS ORDERED: SODIUM CHLORIDE 0.9% 1000ML 1,000 ML IV SCH (21:00)
[2018-03-28] MEDS ORDERED: METOPROLOL TARTRATE 50 MG TAB PO SCH (21:00)
[2018-03-29] MEDS ORDERED: RAPID SEQUENCE INDUCTION BAG ONE (03:29)
--- NOTE | 2018-03-29 04:15 | Emergency Department Note ---
ED Visit Note Code blue note: I was called to the second floor for a CODE BLUE. Upon arrival, I found the patient to be in cardiac arrest(torsdes) with multiple providers from the hospitalist team and the ICU team. I was asked to manage her airway. I prepared equipment to perform intubation. A second cardiac arrest was called in the ICU and the staff from the ICU had to leave. I took over management of this patient's cardiac arrest. At that point, the patient had been defibrillated one time at 200 J. She received 1 g of IV magnesium and 2 epinephrine and had been receiving continuous CPR. During the next pulse check , the patient remained in torsades and was again defibrillated. Intubation was performed by me as described below. With each subsequent pulse check, the patient remained pulseless and apneic. Monitor continued to reveal torsades and ventricular fibrillation. She was defibrillated and additional 3 times without success and received an additional 3 mg of IV epinephrine. I did review the patient's most recent laboratory values from 11 PM last night. She did not have return of spontaneous circulation and was pronounced at 3:42 AM. Intubation note: Appropriate equipment was prepared. A 3 MAC blade was used to facilitate endotracheal intubation. During initial pass, the patient had a large amount of thin bloody fluid in the posterior oropharynx. This was aggressively suctioned with a Yankauer catheter. I attempted to visualize the airway while compressions were in progress. This was unsuccessful. During a pulse check, I attempted to visualize the airway again and could see it but could not pass the 7.5 endotracheal tube. Patient continued to receive bag valve ventilation during CPR. At the next pulse check, the 7.5 endotracheal tube was passed and tube placement was confirmed with visualization, end-tidal CO2 detector color change, and equal breath sounds bilaterally. .
[2018-03-29] MEDS ORDERED: COLLAGENASE OINT 30 GM TUBE TOP SCH (09:00)
[2018-03-29] MEDS ORDERED: methIMAzole 5 MG TABLET PO SCH (09:00)
[2018-03-29] MEDS ORDERED: CIPROFLOXACIN 500 MG TAB PO SCH (09:00)
[2018-03-29] MEDS ORDERED: FAMOTIDINE 20 MG TAB PO SCH (09:00)
[2018-03-29] MEDS ORDERED: CLOPIDOGREL BISULFATE 75 MG TAB PO SCH (09:00)
[2018-03-29] MEDS ORDERED: ASPIRIN 81 MG ECTAB PO SCH (09:00)
--- NOTE | 2018-04-12 10:13 | Discharge Summary ---
Date of Service Date of : 03/29/18 Note being completed on: April 12, 2018 Admission HPI Per Admitting Provider This is a 87 yo F with PMHx of PAD, PVD, chronic lower extremity wounds which have grown MSSA and pseudomonas on cipro, frequent falls, anemia, CKD stage III , calciphylaxis, depression, anxiety, found to be anemic with hgb 8.9 upon presentation to the ER today. Pt had heme + stool. Her , son, daughter are present at bedside. Her daughter supports most of the history due to the patient having some increased confusion lately. Daughter notes that she fell on 03/25 and 03/26 while she was getting out of bed, and once in the middle the night. She has multiple areas of bruising, one on her right shoulder, both legs and around her left eye. She has become progressively weak over the past 3 months. Prior to then she was able to walk without any assistive devices and without pain. Pt reports having generalized pain all over, but specifically in her legs. It is a constant dull pain in her muscles, and worse in her large joints with any movement. Admission Exam Per Admitting Provider Vital Signs (Past 24 Hours): Last Vital Signs Pulse 86 03/28/18 14:12 Resp 18 03/28/18 14:12 BP 137/67 03/28/18 14:12 Pulse Ox 95 03/28/18 14:12 Physical Exam: General: awake, alert, no apparent distress, multiple areas of ecchymosis, difficulty recalling events and providing history. Head: Normocephalic, area of ecchymosis involving the left orbit and forehead ENT: PERRL, EOMI, no pharyngeal exudate, mucous membranes moist Chest: Clear to auscultation, on room air, no adventitious breath sounds Cardiac: Regular rate and rhythm, no murmur, no JVD, normal peripheral pulses, good capillary refill Abdominal: NABS x 4 quadrants, soft, nontender to palpation, no rebound, guarding or tenderness Extremities: +Multiple areas of chronic wounds with mild erythema on BLE covered with dressing, + ecchymosis on the R shoulder, R knee, Left thigh, R toes, calfs nontender to palpation Psych: Normal mood and affect Neuro: AAO to self, has difficulty recalling events, providing history, strength diminished bilaterally and related 4/5, no motor deficits, speech is clear, no peripheral sensory deficits Constitutional: WD/WN, vitals as above Eyes: normal visual sparks by confrontation and + anicteric sclerae Neck: normal visual inspection and trachea midline Respiratory: normal respiratory effort, lungs clear to auscultation Cardiovascular: Rate/Rhythm: regular rate and regular rhythm Gastrointestinal (Abdomen): Inspection/Auscultation: abdomen not distended Percussion/Palpation: abdomen soft; abdomen nontender Musculoskeletal: Head/Neck/Chest: normocephalic slight L LE edema, + pedal pulses Very TTP along b/l LE diffusely Bruising to L eye and forehead, healing Skin: no rashes, warm and dry bruising noted Neurologic: awake; not confused (but does occasionally make comments that are not completely in line with current conversation) Speech / Cognition: normal speech Psychiatric: A+Ox3, euthymic affect Lymphatic: Exam as done by Lula Porter DO Principal Diagnosis Upper GI Bleed Hypotension Weakness Discharge Exam Patient pronounced on 03/29/18 at 03:42 Found to have absence of spontaneous movement, heart tones and respirations No withdrawal from painful stimuli No pupillary response No corneal reflex Discharge Data Allergies Allergy/AdvReac Type Severity Reaction Status Date / Time amlodipine Allergy Unknown UNKNOWN Verified 03/28/18 15:03 morphine Allergy Unknown UNKNOWN Verified 03/28/18 15:03 moxifloxacin Allergy Unknown UNKNOWN Verified 03/28/18 15:03 Quinolones Allergy Unknown . Verified 03/28/18 15:03 Consultations 03/28/18 14:36 ED Decision to Admit Stat 03/28/18 18:54 Consult Case Management - Discharge Planning Routine Ordered Studies 03/28/18 12:40 CT head/brain wo con Stat Hospital Course (1) Upper GI bleed: Patient is an 87yo female with history of peripheral vascular disease, CKD III, chronic wounds admitted on 03/28/18 with anemia, weakness, hypotension and heme positive stools. Thought to have UGIB. On the morning of 03/29/18 a CODE BLUE was called. Resuscitation efforts were attempted but ultimately the patient on 03/29/18 at 03:42 from cardiac arrest secondary to gastrointestinal bleeding. Family was notified. Total Time Total Time Spent Total Time Spent (In Minutes): 20 minutes Discharge Plan Discharge Items Patient Disposition: Admission Data Admit Date/Time: 03/28/18 16:11 Service: Telemetry Other DC Date/Time DO NOT enter until pt leaves facility: 03/29/18 08:00
== END 2018-03-29 08:00 | disposition expired | DRG 378 ==
LOC: ED 12:20 → SUATTDRO 16:11 → 2W 16:11